=== PATIENT | male | born 1935 | race Caucasian/White ===

== ENCOUNTER 2017-07-24 17:42 | Observation (INO) | payer OTHER ==
--- NOTE | 2017-07-24 18:12 | EDPHY ---
H & P Time Seen by Provider: 07/24/17 17:55 HPI/ROS: HPI Abdominal discomfort, swelling of ankles, mild shortness of breath. 81-year-old male by private vehicle with his son. This patient has been living in [place] for the last couple of months. He came up through [place] with family and arrived here in [place] 4 days ago. He reports that over the last 2 days he has had a sensation of fullness and distention in his abdomen. He reports this is feeling gassy. He also reports that he has been feeling short of breath, particularly more so when he was up in [place] yesterday. He also states that he has had some swelling in both his ankles and his feet. He reports he had a reaction similar to this [place] to the [facility] area a couple of years ago. He states that his abdomen is now feeling better. He denies any shortness of breath at this time at rest. ROS: Constitutional: No fever, no chills. No weakness. Eyes: No discharge. No changes in vision. ENT: No sore throat. No nasal congestion or rhinorrhea. Respiratory: No cough. As above. Cardiac: As above, no palpitations. Gastrointestinal: As above, no nausea, no vomiting, no diarrhea. Genitourinary: No hematuria. No dysuria or increased frequency with urination. Musculoskeletal: No back pain. No neck pain. No myalgias or arthralgias. As above. Skin: No rashes. Neurological: No headache. No focal weakness or altered sensation. Past medical history: Atrial fibrillation. He is currently not on anticoagulation. 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 This is Dr. Jonah Park. Social history: Nonsmoker. Drinks alcohol socially. Here with family. Physical Exam: General Appearance: Alert, no distress. This patient is responding to questions appropriately and in full sentences. This patient appears well- hydrated and well-nourished. Eyes: Pupils equal and round no pallor or injection. No lid edema, erythema or injection. Respiratory: There are no retractions, lungs are clear to auscultation with good air movement bilaterally. Cardiovascular: Irregular, irregular rhythm. No murmur. Gastrointestinal: Abdomen is soft, mildly distended but nontender, no masses, bowel sounds normal. No focal tenderness at McBurney's point. No Long sign. Neurological: Motor sensory function is grossly intact. Cranial nerves are normal. Gait is normal. Skin: Warm and dry, no rashes. Musculoskeletal: Neck is supple and nontender. Extremities are symmetrical. Trace lower extremity pitting edema. No calf tenderness on palpation. No palpable cords. All joints range without pain or impingement. Psychiatric: No agitation. No depression. Database: EKG: EKG time is 6:26 p.m.; EKG shows a narrow complex atrial fibrillation with a ventricular rate of 94. The QRS, QT intervals are within normal limits. Borderline T-wave abnormalities in the inferior leads. There are no ST-T wave changes indicative of ischemic or injury pattern. No evidence of right heart strain. Interpreted by me. This EKG was compared to a prior EKG from July of 2013 and does not show any significant changes. Imaging: Chest x-ray AP portable; cardiomegaly, the cardiac mediastinal silhouette is otherwise unremarkable. No evidence of infiltrate or pneumothorax. Acute congestive heart failure with cardiomegaly. Interstitial edema present. Interpreted by me. Upright abdominal series x-ray; no obstructive pattern. No free air. Interpreted by me. CT angiogram of chest; CHF. No pulmonary embolism. Results were discussed with staff radiologist Dr. Orlando Romo. Procedures: Emergency department course: IV placed. Triage vital signs reviewed. He is hypertensive. Vital signs otherwise normal. He is feeling better at the time of his emergency department evaluation. Chest x-ray significant for acute pulmonary edema and congestive heart failure. D-dimer is significantly elevated. Patient will be sent for CT angiogram of his chest to evaluate for pulmonary embolism after verification of normal creatinine. I discussed admission with the patient as well as need for CT angiogram. He consents. 8:00 p.m., hospitalist paged for admission. 8:15 p.m., spoke with on-call hospitalist Dr. Mary Hayward. Case discussed in detail with her. She accepts this patient for admission. The patient's remaining emergency department course under my care has been uneventful. The patient was admitted in stable condition to the hospitalist service. Differential Diagnosis: The differential diagnosis on this patient includes but is not limited to congestive heart failure acute mountain sickness, constipation, atrial fibrillation. Pulmonary embolism, liver failure, renal failure, anemia, acute coronary syndrome unlikely. This represents a partial list of diagnoses considered. These considerations are based on history, physical exam, past history, reassessment and diagnostic testing. Smoking Status: Never smoked Constitutional: Initial Vital Signs Temperature (C) 36.6 C 07/24/17 17:47 Heart Rate 96 07/24/17 17:47 Respiratory Rate 20 07/24/17 17:47 Blood Pressure 165/119 H 07/24/17 17:47 O2 Sat (%) 94 07/24/17 17:47 O2 Delivery Mode Room Air Allergies/Adverse Reactions: No Known Allergies Allergy (Verified 07/24/17 17:46) Home Medications: Medication Instructions Recorded Temazepam [Restoril 15 MG (*)] 15 mg PO HSPRN PRN 08/10/13 Testosterone Cream 1 ro TP DAILY 08/10/13 Medical Decision Making - Diagnostics Imaging Results: Imaging Impressions Chest X-Ray 07/24/17 18:05 Impression: Acute congestive failure with cardiomegaly and interstitial pulmonary edema. Abdomen X-Ray 07/24/17 18:07 Impression: 1. Negative upright abdominal radiograph. Chest/Thorax CTA 07/24/17 18:46 Impression: 1. No evidence of pulmonary embolic disease. 2. Suspect congestive heart failure. 3. See above report for additional findings. Results called and discussed with Aaron Monge MD on 07/24/2017 at 19: 55. - Data Points Laboratory Results: Laboratory Results 07/24/17 18:10 07/24/17 18:10 07/24/17 07/24/17 07/24/17 18:17 18:10 18:10 WBC RBC Hgb Hct MCV MCH MCHC RDW Plt Count MPV Neut % (Auto) Lymph % (Auto) [place] % (Auto) Eos % (Auto) Baso % (Auto) Nucleat RBC Rel Count Absolute Neuts (auto) Absolute Lymphs (auto) Absolute Monos (auto) Absolute Eos (auto) Absolute Basos (auto) Absolute Nucleated RBC Immature Gran % Immature Gran # PT 13.6 SEC SEC (12.0-15.0) INR 1.02 (0.83-1.16) APTT 26.2 SEC SEC (23.0-38.0) D-Dimer 3.32 ug/mLFEU H ug/mLFEU (0.00-0.50) Sodium 138 mEq/L mEq/L (135-145) Potassium 4.1 mEq/L mEq/L (3.3-5.0) Chloride 101 mEq/L mEq/L (97-110) Carbon Dioxide 23 mEq/l mEq/l (22-31) Anion Gap 14 mEq/L mEq/L (8-16) BUN 19 mg/dL mg/dL (7-23) Creatinine 0.8 mg/dL mg/dL (0.7-1.3) Estimated GFR > 60 Glucose 80 mg/dL mg/dL (70-100) Calcium 9.2 mg/dL mg/dL (8.5-10.4) Total Bilirubin 1.5 mg/dL H mg/dL (0.1-1.4) Conjugated Bilirubin 0.5 mg/dL mg/dL (0.0-0.5) Unconjugated Bilirubin 1.0 mg/dL mg/dL (0.0-1.1) AST 120 IU/L H IU/L (17-59) ALT 155 IU/L H IU/L (21-72) Alkaline Phosphatase 112 IU/L IU/L (38-126) POC Troponin I 0.03 ng/mL ng/mL (0.00-0.08) NT-Pro-B Natriuret Pep 6090 pg/mL H pg/mL (0-450) Total Protein 7.5 g/dL g/dL (6.3-8.2) Albumin 4.2 g/dL g/dL (3.5-5.0) Lipase 32 IU/L IU/L (23-300) Urine Color Urine Appearance Urine pH Ur Specific [place] Urine Protein Urine Ketones Urine Blood Urine Nitrate Urine Bilirubin Urine Urobilinogen Ur Leukocyte Esterase Urine RBC Urine WBC Ur Epithelial Cells Urine Glucose 07/24/17 07/24/17 18:10 18:05 WBC 12.12 10^3/uL H 10^3/uL (3.80-9.50) RBC 4.07 10^6/uL L 10^6/uL (4.40-6.38) Hgb 14.1 g/dL g/dL (13.7-17.5) Hct 41.1 % % (40.0-51.0) MCV 101.0 fL H fL (81.5-99.8) MCH 34.6 pg H pg (27.9-34.1) MCHC 34.3 g/dL g/dL (32.4-36.7) RDW 14.2 % % (11.5-15.2) Plt Count 257 10^3/uL 10^3/uL (150-400) MPV 9.7 fL fL (8.7-11.7) Neut % (Auto) 66.0 % % (39.3-74.2) Lymph % (Auto) 21.3 % % (15.0-45.0) [place] % (Auto) 9.0 % % (4.5-13.0) Eos % (Auto) 3.1 % % (0.6-7.6) Baso % (Auto) 0.4 % % (0.3-1.7) Nucleat RBC Rel Count 0.0 % % (0.0-0.2) Absolute Neuts (auto) 7.99 10^3/uL H 10^3/uL (1.70-6.50) Absolute Lymphs (auto) 2.58 10^3/uL 10^3/uL (1.00-3.00) Absolute Monos (auto) 1.09 10^3/uL H 10^3/uL (0.30-0.80) Absolute Eos (auto) 0.38 10^3/uL 10^3/uL (0.03-0.40) Absolute Basos (auto) 0.05 10^3/uL 10^3/uL (0.02-0.10) Absolute Nucleated RBC 0.00 10^3/uL 10^3/uL (0-0.01) Immature Gran % 0.2 % % (0.0-1.1) Immature Gran # 0.03 10^3/uL 10^3/uL (0.00-0.10) PT INR APTT D-Dimer Sodium Potassium Chloride Carbon Dioxide Anion Gap BUN Creatinine Estimated GFR Glucose Calcium Total Bilirubin Conjugated Bilirubin Unconjugated Bilirubin AST ALT Alkaline Phosphatase POC Troponin I NT-Pro-B Natriuret Pep Total Protein Albumin Lipase Urine Color PALE YELLOW Urine Appearance CLEAR Urine pH 7.0 (5.0-7.5) Ur Specific [place] 1.004 (1.002-1.030) Urine Protein NEGATIVE (NEGATIVE) Urine Ketones NEGATIVE (NEGATIVE) Urine Blood 1+ H (NEGATIVE) Urine Nitrate NEGATIVE (NEGATIVE) Urine Bilirubin NEGATIVE (NEGATIVE) Urine Urobilinogen NEGATIVE EU EU (0.2-1.0) Ur Leukocyte Esterase NEGATIVE (NEGATIVE) Urine RBC 1-3 /hpf /hpf (0-3) Urine WBC 1-3 /hpf /hpf (0-3) Ur Epithelial Cells TRACE /lpf /lpf (NONE-1+) Urine Glucose NEGATIVE (NEGATIVE) Medications Given: Hydralazine HCl (Apresoline) 10 mg IVP Q6 PRN PRN Reason: SBP>160 Stop: 01/20/18 21:52 Last Admin: 07/24/17 22:27 Dose: 10 mg Discontinued Medications Furosemide (Lasix Injection) 40 mg IVP ONCE ONE Stop: 07/24/17 21:50 Last Admin: 07/24/17 22:25 Dose: 40 mg Point of Care Test Results: Chemistry 07/24/17 18:17 POC Troponin I 0.03 ng/mL ng/mL (0.00-0.08) Departure - Departure Disposition: [facility] Inpatient Acute Clinical Impression: Atrial fibrillation, CHF (congestive heart failure)
[2017-07-24 18:27] LABS: PLATELET COUNT 257 10^3/uL (150-400)
--- NOTE | 2017-07-24 18:28 | CPEKG ---
Heart Rate: 94 RR Interval: 638 QRSD Interval: 104 QT Interval: 396 QTC Interval: 496 QRS [place]: 62 T Wave [place]: 3 EKG Severity - ABNORMAL ECG - EKG Impression: ATRIAL FIBRILLATION, V-RATE 82-106 EKG Impression: BORDERLINE T ABNORMALITIES, INFERIOR LEADS EKG Impression: BORDERLINE PROLONGED QT INTERVAL Electronically Signed By: Aaron Monge 24-Jul-2017 22:21:45
[2017-07-24 18:35] LABS: INR 1.02 (0.83-1.16); PROTIME(PATIENT) 13.6 SEC (12.0-15.0)
[2017-07-24] MEDS ORDERED: IOPAMIDOL (ISOVUE 370) 100 ML BTL IV ONE (18:52)
[2017-07-24] MEDS ORDERED: FUROSEMIDE 40 MG/4 ML VIAL IVP ONE (21:49)
[2017-07-24] MEDS ORDERED: TEMAZEPAM 15 MG CAP PO PRN (21:49)
[2017-07-24] MEDS ORDERED: ACETAMINOPHEN 325 MG TAB PO PRN (21:52)
[2017-07-24] MEDS ORDERED: ONDANSETRON 4 MG/2 ML VIAL IVP PRN (21:52)
[2017-07-24] MEDS ORDERED: PROMETHAZINE HCL 25 MG/ML INJ IVP PRN (21:52)
[2017-07-24] MEDS ORDERED: hydrALAZINE 20 MG/ML VIAL IVP PRN (21:53)
--- NOTE | 2017-07-24 22:43 | GHP ---
[f rep st] HISTORY AND PHYSICAL DATE OF ADMISSION: 07/24/2017 CHIEF COMPLAINT: Shortness of breath. HISTORY: The patient is a 81-year-old male who has a home in [place] in addition to a home in [place] . He had been in [place] for the last few months. He just returned last Saturday. He now complains of 3 days of shortness of breath and increasing leg edema. He has PND and orthopnea. He denies any chest pain. He ate a lot of salt while he was in [place]. He also complains of abdominal distention, saying that yesterday his abdomen was distended and hard as a rock. It is a little better today. Andrea smallwood had some epigastric pain yesterday that has now resolved. PAST MEDICAL HISTORY: Atrial fibrillation, refuses anticoagulation. MEDICATIONS: Please see computer record for full detailed list. ALLERGIES: No known drug allergies. SOCIAL HISTORY: No smoking. He drinks 2 drinks every day, although he admits that they are heavy dr inks, so more like 4. He lives alone, but his son lives right next door. REVIEW OF SYSTEMS: Complete review of systems obtained. Review of systems negative regarding consti tutional, HEENT, GI, pulmonary, cardiovascular, , hematology, musculoskeletal, endocrine, and psych except for positives and negatives as noted in HPI. FAMILY HISTORY: Reviewed and noncontributory to presenting complaint. PHYSICAL EXAM: GENERAL: Well-nourished male, in no acute distress. VITAL SIGNS: Temperature is 36 .6, pulse 97, blood pressure 165/102, saturating 93% on room air. EYES: Normal conjunctiva. Pupils reactive to light. ENT: Normal ears, nose. Hearing intact. Normal teeth. Oropharynx moist. NEC K: Trachea midline. No thyromegaly. CHEST: Normal respiratory effort. LUNGS: Bibasilar rales. CARDIOVASCULAR: Regular rhythm. No murmur. Trace lower extremity edema. ABDOMEN: Soft, nontender . No hepatosplenomegaly. Distended. SKIN: Warm, dry, intact without rash. MUSCULOSKELETAL: No c yanosis or clubbing. Strength 5/5 upper and lower extremities. NEUROLOGIC: Cranial nerves intact. Normal sensation to light touch. PSYCH: Alert and oriented x3. Normal mood and affect. Normal ju dgment. Normal memory. LABORATORY DATA: White count 12.1, hematocrit 41, platelets 257. Sodium 138, potassium 4.1, chlorid e 101, bicarb 23, BUN 14, creatinine 0.8, glucose 80. Troponins negative. AST is 120. ALT is 155. BNP is 6090. EKG viewed by me. My personal interpretation is atrial fibrillation. No ischemic ST or T-wave changes. CT angiogram of chest is negative for PE but does have congestive heart failure. ASSESSMENT/PLAN: 1. New onset congestive heart failure. We will check an echocardiogram. We will start him on intra venous Lasix. 2. Hypertension. He denies a history of hypertension, but on review of his chart, it has been liste d as a problem for him in the past. He does appear to have poor compliance. We will prescribe intra venous hydralazine overnight. He may need an oral agent. His poorly controlled hypertension is like ly contributing to his congestive heart failure. 3. Increased liver function tests. He also complains of epigastric pain and abdominal distention. He is drinking alcohol heavily. We will start with an abdominal ultrasound. He may need further wor kup. 4. Atrial fibrillation. Rate is okay despite lack of agents for rate control. He has refused antic oagulation in the past. CODE STATUS: Full. ADMISSION STATUS: We will admit him to observation. Re-evaluate tomorrow regarding ongoing need for hospitalization. DVT PROPHYLAXIS: He is moderate risk. We will place him on subcu Lovenox. /[id number]/MODL
[2017-07-24] MEDS ORDERED: METOPROLOL TARTRATE 25 MG TAB PO ONE (23:32)
[2017-07-25 04:24] LABS: PLATELET COUNT 266 10^3/uL (150-400)
[2017-07-25 04:31] LABS: INR 1.07 (0.83-1.16); PROTIME(PATIENT) 14.1 SEC (12.0-15.0)
[2017-07-25 05:11] LABS: HEPATITIS B SURFACE ANTIGEN NEGATIVE (NEGATIVE)
[2017-07-25 05:16] LABS: HEPATITIS A ANTIBODY IGM (BCH) NEGATIVE (NEGATIVE); HEPATITIS B CORE AB IGM NEGATIVE (NEGATIVE)
[2017-07-25 05:28] LABS: HEPATITIS C ANTIBODY TOTAL NEGATIVE (NEGATIVE)
[2017-07-25] MEDS ORDERED: ENOXAPARIN 40 MG/0.4 ML SYR SC SCH (09:00)
[2017-07-25] MEDS ORDERED: FUROSEMIDE 40 MG/4 ML VIAL IVP SCH (09:00)
[2017-07-25] MEDS ORDERED: TESTOSTERONE TP SCH (09:00)
[2017-07-25 11:22] VITALS: BP 147/103
--- NOTE | 2017-07-25 12:25 | ECHO ---
[email or web address] [address] Main: [phone] Fax: Transthoracic Echocardiogram Name: YUE GLOVER MR#: [id number] Study Date: 07/25/2017 Study Time: 08:50 AM Date of : 1935 Age: 81 year(s) Height: 175.3 cm (69 in.) Weight: 71.21 kg (157 lb.) BSA: 1.86 m2 Gender: Male Examination: Echo Indication: CHF Image Quality: Adequate Contrast: Requested by: Mary Hayward BP: 141 mmHg/88 mmHg Heart Rate: Rhythm: Atrial fibrillation Indication: CHF Procedure Staff Tennis Professional: Beronica Fonseca RDCS Reading Physician: Ron Yanez MD Requesting Provider: Conclusions: Low normal left ventricular systolic function. EF is 51 %. The left atrium is severely dilated. Mild to moderate mitral regurgitation. Moderate aortic valve regurgitation is present. Moderate tricuspid regurgitation is present. Right ventricular systolic pressure measures 41mmHg. Measurements: Chambers Valvular Assessment AV/MV Valvular Assessment TV/PV Normal Normal Normal Name Value Range Name Value Range Name Value Range Ao Beverley (MM): 3.3 cm (2.2 cm-3.7 AV Vmax: 1.26 m/s (1 m/s-1.7 TR Vmax: 2.80 mm/s ( - ) cm) m/s) TR PGmax: 31 mmHg ( - ) IVSd (2D): 1.0 cm (0.6 cm-1.1 AV maxP mmHg ( - ) syst. PAP: 41 mmHg ( - ) cm) LVOT Vmax: 0.78 m/s (0.7 m/s-1.1 PV Vmax: 0.66 m/s (0.6 m/s-0.9 LVDd (2D): 4.4 cm (4.2 cm-5.9 m/s) m/s) cm) AR (PHT): 633 ms ( - ) PV PGmax: 2 mmHg ( - ) LVDs (2D): 3.6 cm (2.1 cm-4 MV E Vmax: 0.85 m/s ( - ) cm) LVPWd (2D): 1.1 cm (0.6 cm-1 cm) LVEF (BP): 51 % (>=55 %) RVDd(2D): 3.5 cm (1.9 cm-3.8 cmmm) Continued Measurements: Chambers Valvular Assessment AV/MV Valvular Assessment TV/PV Name Value Name Value Name Value Patient: YUE GLOVER Study Date: 07/25/2017 Page 1 of 2 08:50 AM LADs Lon.2 cm MV DecTime: 169 m/s CVP (est.): 10 mmHg LA Area: 29.2 cm2 MV E' Septal: 0.09 m/s LA Volume: 100 ml MV E/E' Septal: 9.80 LA Volume Index: 53.8 ml/m2 MV E/E' Lateral: 8.50 TAPSE: 1.5 cm AR Vmax: 4.24 cm/s Additional Vessels Name Value Ao Ascendin.6 cm Findings: Left Ventricle: Normal size left ventricle. Borderline concentric LV hypertrophy. Low normal left ventricular systolic function. EF is 51 %. No regional wall motion abnormality. Unable to assess diastolic dysfunction. Right Ventricle: Normal size right ventricle. Normal RV function. Left Atrium: The left atrium is severely dilated. Right Atrium: The right atrium is severely dilated. Mitral Valve: There is mild thickening of the mitral valve leaflets. Mild to moderate mitral regurgitation. Aortic Valve: The aortic valve is tri-leaflet. Mild aortic cusp calcification is noted. Moderate aortic valve regurgitation is present. No aortic valve stenosis is present. Tricuspid Valve: The tricuspid valve appears normal. Moderate tricuspid regurgitation is present. Right ventricular systolic pressure measures 41mmHg. The pulmonary artery pressure is mildly increased. Pulmonic Valve: The pulmonic valve is normal in appearance and function. Trivial pulmonic valve regurgitation. Aorta: Normal size aortic root measuring 3.3 cm. Normal size ascending aorta measuring 3.6 cm. IVC: The IVC is dilated. Pericardium: No pericardial effusion. (No Signature Object) Patient: YUE GLOVER Study Date: 07/25/2017 Page 2 of 2 08:50 AM [id number]
--- NOTE | 2017-07-25 13:19 | HOSPPROG ---
Hospitalist Progress Note Assessment/Plan: 81 yo M w new systolic heart failure declines all therapies 30' spent at bedisde discussing will dc today encouraged outpt pcp follow upsee dc summary Subjective: case d/w dr qureshi Objective: Vital Signs Temp Pulse Resp BP Pulse Ox 36.6 C 91 16 147/103 H 94 07/25/17 11:21 07/25/17 11:21 07/25/17 11:21 07/25/17 11:21 07/25/17 11:21 Laboratory Results 07/25/17 03:31 07/25/17 03:31 07/24/17 07/25/17 07/26/17 05:59 05:59 05:59 Intake Total 250 Output Total 2805 150 Balance -2555 -150 PT 14.1 SEC (12.0-15.0) 07/25/17 03:31 INR 1.07 (0.83-1.16) 07/25/17 03:31 - Physical Exam Constitutional: no apparent distress, appears nourished Eyes: PERRL, anicteric sclera Ears, Nose, Mouth, Throat: moist mucous membranes, hearing normal Cardiovascular: regular rate and rhythym, no murmur, rub, or gallop, systolic murmur Respiratory: no respiratory distress, No no rales or rhonchi Gastrointestinal: normoactive bowel sounds, soft, non-tender abdomen Genitourinary: no bladder fullness, sarah in urethra Skin: warm, normal color Musculoskeletal: full muscle strength Neurologic: AAOx3 ICD10 Worksheet Patient Problems: Problems Problem Status Onset A-fib Acute CHF (congestive heart failure) Acute
--- NOTE | 2017-07-25 13:41 | GDS ---
[f rep st] DISCHARGE SUMMARY DISCHARGE DIAGNOSES: 1. New symptomatic systolic heart failure. 2. Longstanding atrial fibrillation. 3. Abdominal bloating. 4. Mitral regurgitation. HISTORY OF PRESENT ILLNESS: Please see admission history and physical by Dr. Mary Hyaward. The pa brett presented with lower extremity edema, orthopnea and PND following returning from [place] where garcia smallwood spent a number of months. Evaluation revealed mild pulmonary edema. He had elevated D-dimer with resulting negative study for pulmonary embolism. He had moderate transaminitis that is trending down . This is attributed to moderately heavy alcohol use. Notably, the pattern of AST and ALT was not n ecessarily consistent with alcohol use. The patient had a echocardiogram showing an EF of 50% without focal wall motion abnormalities as well as as a severely dilated left atrium with mild to moderate mitral regurgitation. He had an RVSP of 41 mmHg. I discussed the risks and benefits of treatment including an ESTRELLITA inhibitor, diuretic, stres s test and further evaluation. He declined all of this, stating he would like to follow up with his primary care physician. He is on room air. I did call and speak with Dr. Francesco Yang, his [facility] physician and encouraged followup. The patient is discharged on no medications. /[id number]/MODL
== END 2017-07-25 13:55 | disposition home or self-care (01) ==
LOC: INTOOBSV 20:23 → F2W 21:09
PROVIDERS: ADMIT Internal Medicine; ATTEND Internal Medicine
DX: I50.20 Unspecified systolic (congestive) heart failure (principal); I48.91 Unspecified atrial fibrillation; R14.0 Abdominal distension (gaseous); I34.0 Nonrheumatic mitral (valve) insufficiency; R74.0 Nonspecific elevation of levels of transaminase and lactic acid dehydrogenase [LDH]; I11.0 Hypertensive heart disease with heart failure
CPT/HCPCS: 71045; 71275; 74018; 76705; 93005; 93306; 99285; G0378; J0360; J1940; Q9967; 84484-PO; G0472

== ENCOUNTER → 2017-08-14 | Outpatient (CLI) | payer OTHER | LOC: BHFA 09:15 | PROVIDERS: ATTEND Nurse Practitioner Adult Health | DX: I48.91 Unspecified atrial fibrillation (principal) ==

== ENCOUNTER 2017-10-09 10:53 | Inpatient (IN) | payer OTHER ==
[2017-10-09] MEDS ORDERED: ONDANSETRON 4 MG/2 ML VIAL ONE ×2 (11:17→17:51)
[2017-10-09] MEDS ORDERED: NS 1,000 ML IV ONE ×3 (11:26→21:58)
[2017-10-09] MEDS ORDERED: HYDROmorphONE/DILAUDID 2 MG/ML INJ IVP ONE (11:26)
[2017-10-09] MEDS ORDERED: HYDROmorphONE/DILAUDID 1 MG/ML INJ ONE (11:26)
[2017-10-09] MEDS ORDERED: ONDANSETRON 4 MG/2 ML VIAL IVP ONE (11:26)
--- NOTE | 2017-10-09 11:26 | EDPHY ---
H & P Stated Complaint: GENERALIZED ABD PAIN AND N/V SINCE THIS MORNING Time Seen by Provider: 10/09/17 11:25 - Personal History Current Tetanus Diphtheria and Acellular Pertussis (TDAP): Yes - Medical/Surgical History Hx Asthma: No Hx Chronic Respiratory Disease: No Hx Diabetes: No Hx Cardiac Disease: Yes Hx Renal Disease: No Hx Cirrhosis: No Hx Alcoholism: No Hx HIV/AIDS: No Hx Splenectomy or Spleen Trauma: No Other PMH: ?afib, sts "irregular HB that Rich told me to just drink more fluids for since I didn't want blood thinners" HTN, NEUROPATHY, DIVERTICULOSIS, HAND SURGERY, TONSILECTOMY, MICROCYTOSIS - Social History Smoking Status: Never smoked Constitutional: Initial Vital Signs Temperature (C) 36.5 C 10/09/17 11:05 Heart Rate 104 H 10/09/17 11:05 Respiratory Rate 22 H 10/09/17 11:05 Blood Pressure 190/106 H 10/09/17 11:05 O2 Sat (%) 94 10/09/17 11:05 O2 Delivery Mode Oxymask O2 (L/minute) 2 Allergies/Adverse Reactions: No Known Allergies Allergy (Verified 10/09/17 11:01) Home Medications: Medication Instructions Recorded Multivitamins [Multivitamin (*)] 1 each PO DAILY 10/09/17 Temazepam [Restoril 15 MG (*)] 15 mg PO HSPRN PRN 10/09/17 Medical Decision Making - Diagnostics Imaging Results: Imaging Impressions Abdomen CT 10/09/17 11:26 Impression: 1. Bowel perforation, likely ileum, may be due to Meckel's diverticulum, isolated small bowel diverticulum, or ileitis. 2. No abscess or large volume pneumoperitoneum. Findings discussed with Emergency Department physician, Jhon Hebert MD, on , 13:35. Imaging: Discussed imaging studies w/ train caller Radiologist, I viewed and interpreted images myself ED Course/Re-evaluation: CHIEF COMPLAINT: Abdominal pain HISTORY OF PRESENT ILLNESS: The patient is a 81 y/o male with a history of atrial fibrillation, cardiac stents, and diverticulosis complaining of sudden onset abdominal pain, nausea, and vomiting onset this morning. Around 1 hour after eating pizza and coffee this morning he developed the worsening abdominal pain. He did have a normal bowel movement this morning. Denies chest pain, shortness of breath, urinary complaints, numbness, paresthesias, fever. REVIEW OF SYSTEMS: A 10 point review of systems was performed and is negative with the exception of the elements mentioned in the history of present illness. PHYSICAL EXAM: HR, BP, O2 Sat, RR. Temp noted General Appearance: Alert, well hydrated, appropriate, and non-toxic appearing. Head: Atraumatic without scalp tenderness or obvious injury Eyes: Pupils equal, round, reactive to light and accommodation, EOMI, no trauma , no injection. Ears: Clear bilaterally, no perforation, normal landmarks Nose: Atraumatic, no rhinorrhea, clear. Throat: There is no erythema or exudates, no lesions, normal tonsils, mucus membranes moist. Neck: Supple, 2+ carotid upstroke, nontender, no lymphadenopathy. Respiratory: No retractions, no distress, no wheezes, and no accessory muscle use. Lungs are clear to auscultation bilaterally. Cardiovascular: Regular rate and rhythm, no murmurs, rubs, or gallops. Bilateral carotid, radial, dorsalis pedis, and posterior tibial pulses intact. Good capillary refill all extremities. Gastrointestinal: Rigid and diffusely tender abdomen consistent with positive peritoneal signs. Abdomen is non-distended, no masses, no rebound, no guarding. Musculoskeletal: Normal active ROM of all extremities, atraumatic. Neurological: Alert, appropriate, and interactive. The patient has normal DTRs and non-focal cranial nerves, motor, sensory, and cerebellar exam. Skin: No rashes, good turgor, no nodules on palpation. Past medical history: Atrial fibrillation, hypertension, neuropathy, diverticulosis, microcytosis, Past surgical history: Cardiac stents, tonsillectomy, hand surgery Family history: Denies Social history: Lives in [place], family at bedside, retired DIAGNOSTICS/PROCEDURES/CRITICAL CARE TIME: Abdominopelvic CT: Perforated bowel; terminal ileum is inflamed and he has extraluminal gas. EKG: The 12 lead EKG was interpreted by myself as atrial fibrillation with RVR and a rate of 151, left ventricular hypertrophy, borderline prolonged QT interval. See hard copy and/or "tracemaster" electronic copy for interpretation. Critical care time spent by me, Dr. Hebert, exclusively with this patient was 30 minutes, exclusive of PA time and exclusive of procedures. The organ system at risk was gastrointestinal and I gave IVF, Ertapenem, diltiazem, and transferred the patient to a general surgeon to prevent worsening of the patients condition. DIFFERENTIAL DIAGNOSIS: The differential diagnosis for the patient's abdominal pain included but was not limited to perforated bowel, appendicitis, cholecystitis, hernias, testicular torsion, gastritis, and urinary tract infection. MEDICAL DECISION MAKING: The patient is a 81 y/o male with a history of atrial fibrillation, cardiac stents, and diverticulosis presenting with sudden onset abdominal pain, nausea, and vomiting onset this morning. On exam he has a rigid, diffusely tender abdomen with positive peritoneal signs. Labs and abdominopelvic CT ordered; 1L IV NS, 0.5mg IV Dilaudid, and 4mg IV Zofran administered. 1140: Patient's pain has not improved with Dilaudid; 1mg IV Ativan administered. 1157: Patient's EKG interpreted as atrial fibrillation with RVR. 20mg IV Diltiazem bolus and IV Diltiazem drip administered. This patient is aware of the atrial fibrillation and does not want to be anticoagulated. 1225: Reassessed patient as his O2Sats dropped into the 60's while CT was trying to lie him flat. His O2Sats are now in the 80's and he is on 10L supplemental oxygen; he does have normal wave form. 1322: Patient has returned from CT. His labs are unremarkable. 1333: Spoke with Dr. Duran, radiologist, regarding patients abdominopelvic CT. The patient has perforated bowel, the terminal ileum is inflamed and he has extraluminal gas. His labs are unremarkable; 1gm Ertapenem administered. 1335: Consulted with Dr. Kendall, general surgeon, regarding this patient. Dr. Kendall agrees to admit and operate on this patient. The patient's rate remains controlled with Diltiazem. 1338: Consulted with hospitalist service, Dr. Quintero will follow this patient during his admission. 1345: Consulted with [facility] regarding this patient. They will consult on this patient during his admission. Echocardiogram ordered. 1400: Reassessed patient and discussed plan for surgery and admission. The patient and his family are comfortable with this plan. Upon reexamination he is becoming more hypoxemic and is not mentating well. 1405: I consulted with Dr. Quintero, who will admit this patient instead of Dr. Kendall. 1444: Consulted with Dr. Finn, diesel powerplant supervisor, regarding this patient. - Data Points Laboratory Results: Laboratory Results 10/09/17 11:30 10/09/17 11:30 10/09/17 10/09/17 10/09/17 11:39 11:30 11:30 WBC RBC Hgb POC Hgb 19.0 gm/dL H gm/dL (13.7-17.5) Hct POC Hct 56 % H % (40-51) MCV MCH MCHC RDW Plt Count MPV Neut % (Auto) Lymph % (Auto) [place] % (Auto) Eos % (Auto) Baso % (Auto) Nucleat RBC Rel Count Absolute Neuts (auto) Absolute Lymphs (auto) Absolute Monos (auto) Absolute Eos (auto) Absolute Basos (auto) Absolute Nucleated RBC Immature Gran % Immature Gran # PT 13.8 SEC SEC (12.0-15.0) INR 1.04 (0.83-1.16) APTT 23.2 SEC SEC (23.0-38.0) POC Sodium 140 mEq/L mEq/L (135-145) Sodium 140 mEq/L mEq/L (135-145) POC Potassium 4.0 mEq/L mEq/L (3.3-5.0) Potassium 4.6 mEq/L mEq/L (3.3-5.0) POC Chloride 104 mEq/L mEq/L (97-110) Chloride 101 mEq/L mEq/L (97-110) Carbon Dioxide 26 mEq/l mEq/l (22-31) Anion Gap 13 mEq/L mEq/L (8-16) POC BUN 31 mg/dL H mg/dL (7-23) BUN 31 mg/dL H mg/dL (7-23) Creatinine 0.9 mg/dL mg/dL (0.7-1.3) POC Creatinine 1.0 mg/dL mg/dL (0.7-1.3) Estimated GFR > 60 Glucose 174 mg/dL H mg/dL (70-100) POC Glucose 170 mg/dL H mg/dL (70-100) Calcium 10.0 mg/dL mg/dL (8.5-10.4) Total Bilirubin 0.9 mg/dL mg/dL (0.1-1.4) Conjugated Bilirubin 0.1 mg/dL mg/dL (0.0-0.5) Unconjugated Bilirubin 0.8 mg/dL mg/dL (0.0-1.1) AST 36 IU/L IU/L (17-59) ALT 31 IU/L IU/L (21-72) Alkaline Phosphatase 87 IU/L IU/L (38-126) Total Protein 8.3 g/dL H g/dL (6.3-8.2) Albumin 4.7 g/dL g/dL (3.5-5.0) Lipase 47 IU/L IU/L (23-300) 10/09/17 11:30 WBC 7.98 10^3/uL 10^3/uL (3.80-9.50) RBC 4.96 10^6/uL 10^6/uL (4.40-6.38) Hgb 17.5 g/dL g/dL (13.7-17.5) POC Hgb Hct 51.4 % H % (40.0-51.0) POC Hct MCV 103.6 fL H fL (81.5-99.8) MCH 35.3 pg H pg (27.9-34.1) MCHC 34.0 g/dL g/dL (32.4-36.7) RDW 13.6 % % (11.5-15.2) Plt Count 283 10^3/uL 10^3/uL (150-400) MPV 10.0 fL fL (8.7-11.7) Neut % (Auto) 54.3 % % (39.3-74.2) Lymph % (Auto) 34.1 % % (15.0-45.0) [place] % (Auto) 4.6 % % (4.5-13.0) Eos % (Auto) 6.0 % % (0.6-7.6) Baso % (Auto) 0.5 % % (0.3-1.7) Nucleat RBC Rel Count 0.0 % % (0.0-0.2) Absolute Neuts (auto) 4.33 10^3/uL 10^3/uL (1.70-6.50) Absolute Lymphs (auto) 2.72 10^3/uL 10^3/uL (1.00-3.00) Absolute Monos (auto) 0.37 10^3/uL 10^3/uL (0.30-0.80) Absolute Eos (auto) 0.48 10^3/uL H 10^3/uL (0.03-0.40) Absolute Basos (auto) 0.04 10^3/uL 10^3/uL (0.02-0.10) Absolute Nucleated RBC 0.00 10^3/uL 10^3/uL (0-0.01) Immature Gran % 0.5 % % (0.0-1.1) Immature Gran # 0.04 10^3/uL 10^3/uL (0.00-0.10) PT INR APTT POC Sodium Sodium POC Potassium Potassium POC Chloride Chloride Carbon Dioxide Anion Gap POC BUN BUN Creatinine POC Creatinine Estimated GFR Glucose POC Glucose Calcium Total Bilirubin Conjugated Bilirubin Unconjugated Bilirubin AST ALT Alkaline Phosphatase Total Protein Albumin Lipase Medications Given: Discontinued Medications Diltiazem HCl (Cardizem 25 Mg/5 Ml Vial) 20 mg IVP EDNOW ONE Stop: 10/09/17 12:03 Last Admin: 10/09/17 12:32 Dose: 20 mg Hydromorphone HCl (Dilaudid) 1 mg IVP EDNOW ONE Stop: 10/09/17 11:27 Last Admin: 10/09/17 11:31 Dose: 1 mg Sodium Chloride (Ns) 1,000 mls @ 0 mls/hr IV EDNOW ONE; Wide Open PRN Reason: Protocol Stop: 10/09/17 11:27 Last Admin: 10/09/17 11:31 Dose: 1,000 mls Diltiazem HCl 125 mg/ Dextrose 125 mls @ 0 mls/hr IV EDNOW ONE; As Directed PRN Reason: Protocol Stop: 10/09/17 12:03 Last Admin: 10/09/17 12:33 Dose: 125 mls Ertapenem 1 gm/ Sodium (Chloride) 100 mls @ 200 mls/hr IV EDNOW ONE PRN Reason: Protocol Stop: 10/09/17 14:03 Last Admin: 10/09/17 14:25 Dose: 100 mls Lorazepam (Ativan Injection) 1 mg IVP EDNOW ONE Stop: 10/09/17 11:42 Last Admin: 10/09/17 11:43 Dose: 1 mg Ondansetron HCl (Zofran) 4 mg IVP EDNOW ONE Stop: 10/09/17 11:27 Last Admin: 10/09/17 11:31 Dose: 4 mg Point of Care Test Results: Chemistry 10/09/17 11:39 POC Sodium 140 mEq/L mEq/L (135-145) POC Potassium 4.0 mEq/L mEq/L (3.3-5.0) POC Chloride 104 mEq/L mEq/L (97-110) POC BUN 31 mg/dL H mg/dL (7-23) POC Creatinine 1.0 mg/dL mg/dL (0.7-1.3) POC Glucose 170 mg/dL H mg/dL (70-100) ISTAT H&H 10/09/17 11:39 POC Hgb 19.0 gm/dL H gm/dL (13.7-17.5) POC Hct 56 % H % (40-51) Departure - Departure Disposition: To OP Cath/Surgery Clinical Impression: Perforated bowel, terminal ileum inflammation, Hypoxemia A-fib Qualifiers: Atrial fibrillation type: unspecified Qualified Code(s): I48.91 - Unspecified atrial fibrillation Condition: Critical Report Scribed for: Jhon Hebert Report Scribed by: Vanessa Shankar Date of Report: 10/09/17 Time of Report: 11:26
[2017-10-09] MEDS ORDERED: LORazepam 2 MG/ML INJ ONE (11:40)
[2017-10-09] MEDS ORDERED: LORazepam 2 MG/ML INJ IVP ONE (11:41)
[2017-10-09 11:44] LABS: PLATELET COUNT 283 10^3/uL (150-400)
[2017-10-09 11:54] LABS: INR 1.04 (0.83-1.16); PROTIME(PATIENT) 13.8 SEC (12.0-15.0)
[2017-10-09] MEDS ORDERED: DILTIAZEM 25 MG/5 ML VIAL IVP ONE (12:02)
[2017-10-09] MEDS ORDERED: DILTIAZEM 125 MG in D5W 125 ML IV ONE (12:02)
[2017-10-09] MEDS ORDERED: IOPAMIDOL (ISOVUE-300) 100 ML BTL ONE (12:08)
[2017-10-09] MEDS ORDERED: ERTAPENEM 1 GM in NS 100 ML IV ONE (13:34)
[2017-10-09] MEDS ORDERED: ACETAMINOPHEN 325 MG TAB PO PRN (14:09)
[2017-10-09] MEDS ORDERED: ONDANSETRON 4 MG/2 ML VIAL IVP PRN ×2 (14:09→18:39)
[2017-10-09] MEDS ORDERED: ONDANSETRON DISINTEGRATING 4 MG TAB PO PRN (14:09)
[2017-10-09] MEDS ORDERED: NS 1,000 ML IV SCH (14:15)
--- NOTE | 2017-10-09 15:03 | GHP ---
[f rep st] HISTORY AND PHYSICAL DATE OF ADMISSION: 10/09/2017 CHIEF COMPLAINT: Abdominal pain. HISTORY OF PRESENT ILLNESS: A 81-year-old man who presents with abdominal pain. Most history is obt ained through his daughter and son as he is not very responsive. He is curled up on his side in deborah r abdominal pain. Apparently this started suddenly this morning. He was found vomiting yellow fluid into his toilet. His significant other called an ambulance. He was taken emergently to the ED. He has had intermittent abdominal pain previously. This was the most severe. In the emergency departm ent, he was found to have a perforated ileum. Has become progressively more confused. He was also f ound to be in rapid atrial fibrillation. He was slowed down with a diltiazem drip. He did have a hi story of atrial fibrillation in the past and refused anticoagulation as well as scooter blockers. He h ad a history of mild systolic CHF with an EF of 50%. PAST MEDICAL/SURGICAL HISTORY: 1. Atrial fibrillation, refused medications. 2. Mild systolic CHF with an EF of 51%. MEDICATIONS: Please see medication reconciliation. ALLERGIES: No known drug allergies. SOCIAL HISTORY: He is accompanied by his son as well as his daughter. FAMILY HISTORY: Reviewed and noncontributory. REVIEW OF SYSTEMS: 10-point review of systems is conducted and is negative except per HPI. PHYSICAL EXAM: VITAL SIGNS: Blood pressure 190/106. Heart rate is up to initially 170, currently a round 80. Respiration rate when I am seeing him, is around 35-40, sating at 90% on high liter simple mask. GENERAL: The patient is an uncomfortable appearing man lying on his side in clear distress. HEENT: Shows him to be normocephalic, atraumatic. CARDIOVASCULAR: Regular rate and rhythm. He has a 2/6 systolic murmur. PULMONARY: Shows him to be breathing rapidly. His lungs are clear, however . ABDOMEN: Shows absent bowel sounds. Abdomen is firm and clearly tender to palpation as he grimace s when I press on it. SKIN: Showed no rash. : Showed no Zhao. NEUROLOGIC: Shows him to be al ert and oriented, though he seems to be somewhat detached. PSYCHIATRIC: Unobtainable. LABS: Basic metabolic panel shows a BUN of 31, glucose of 174. LFT showed a slightly elevated total protein of 8.3, but otherwise negative. INR is 1.04. White count of 7.9. MCV is 103.6. His hemog lobin is 17.5. Platelets are 283. DATA: 1. Discussed with Dr. Hebert. 2. I reviewed his abdominal CT. This shows evidence of an ileal perforation. 3. EKG, which I personally reviewed and interpreted, shows atrial fibrillation. He has a ventricula r rate of about 150. He has some, I believe, aberrancy intermittently. There are no acute ischemic changes. Is not significantly changed from his previous other than the tachycardia. IMPRESSION AND PLAN: 1. Perforated ileum: Dr. Kendall has been consulted and will see him momentarily. Expect, given his r igid abdomen and clinical appearance, that he will need emergent laparotomy. He has received Invanz; I will continue Zosyn for a high risk intraabdominal infection. 2. Perioperative evaluation: Will defer cardiovascular evaluation to Cardiology; however, he is mari te active, easily able to attain 4 METs at baseline. This would clearly be an emergent surgery as we ll. Echocardiogram is being performed now. His last ejection fraction was 51%. He does not appear to be in decompensated congestive heart failure, however. Would recommend that further therapeutics do not delay his definitive operative management. 3. Atrial fibrillation with rapid ventricular response: Indicative of his severe illness. He is cu rrently slowed on diltiazem. Would continue this for now. Appreciate cardiology management. He has declined anticoagulation in the past. Certainly is not appropriate at this point. 4. Sepsis as evidenced by tachypnea and tachycardia in the setting of an intraabdominal infection: He has received 1 L bolus. Is not currently hypotensive. Would continue to do intravenous fluids fo r now. 5. Respiratory failure: Likely due to his intraabdominal infection. He may need to be intubated pr eoperative or continue intubation postoperatively. Dr. Hebert is aware and available for intubation right now. BILLING: I spent a total of 45 minutes of floor critical care time managing intestinal perforation o f the patient. /[id number]/MODL
--- NOTE | 2017-10-09 15:40 | ECHO ---
[email or web address] [address] Main: [phone] Fax: Transthoracic Echocardiogram Name: YUE GLOVER MR#: [id number] Study Date: 10/09/2017 Study Time: 02:27 PM Date of : 1935 Age: 81 year(s) Height: 172.7 cm (68 in.) Weight: 72.58 kg (160 lb.) BSA: 1.86 m2 Gender: Male Examination: Echo Indication: Perforated Valve Image Quality: Contrast: Requested by: Jhon Hebert BP: / Heart Rate: Rhythm: Atrial fibrillation Indication: Perforated Valve Procedure Staff Catcher Filter Tip: Ritesh Rankin RDCS Reading Physician: Anil Finn MD Requesting Provider: Conclusions: Normal size left ventricle. Borderline concentric LV hypertrophy. The ejection fraction is visually estimated to be 50 %. The left atrium is severely dilated. The right atrium is severely dilated. Mild mitral valve leaflet calcification is present. Mild to moderate mitral regurgitation. The aortic valve is tri-leaflet. Mild aortic cusp calcification is noted. Mild to moderate aortic valve regurgitation. When compared to the 07/25/17 study. There is no significant change. Measurements: Chambers Valvular Assessment AV/MV Valvular Assessment TV/PV Normal Normal Normal Name Value Range Name Value Range Name Value Range Ao Beverley (MM): 3.6 cm (2.2 cm-3.7 AV Vmax: 1.41 m/s (1 m/s-1.7 TR Vmax: 2.93 mm/s ( - ) cm) m/s) TR PGmax: 34 mmHg ( - ) IVSd (2D): 1.1 cm (0.6 cm-1.1 AV maxP mmHg ( - ) syst. PAP: 39 mmHg ( - ) cm) LVOT Vmax: 0.70 m/s (0.7 m/s-1.1 PV Vmax: 0.90 m/s (0.6 m/s-0.9 LVDd (2D): 4.6 cm (4.2 cm-5.9 m/s) m/s) cm) AR (PHT): 509 ms ( - ) PV PGmax: 3 mmHg ( - ) LVDs (2D): 3.4 cm (2.1 cm-4 MV E Vmax: 0.76 m/s ( - ) cm) LVPWd (2D): 1.2 cm (0.6 cm-1 cm) LVEF (MOD2): 46 % (>=55 %) Visual EF: 50 % Continued Measurements: Patient: YUE GLOVER Study Date: 10/09/2017 Page 1 of 2 02:27 PM Chambers Valvular Assessment AV/MV Valvular Assessment TV/PV Name Value Name Value Name Value LADs Lon.9 cm MV E/E' Septal: 9.60 CVP (est.): 5 mmHg LA Area: 26.2 cm2 MV E/E' Lateral: 6.10 AR Vmax: 3.01 cm/s Findings: Left Ventricle: Normal size left ventricle. Borderline concentric LV hypertrophy. The ejection fraction is visually estimated to be 50 %. No regional wall motion abnormality. The rhythm is atrial fibrillation. The EF 50%. Right Ventricle: Normal size right ventricle. Normal RV function. Left Atrium: The left atrium is severely dilated. Right Atrium: The right atrium is severely dilated. Mitral Valve: Mild mitral valve leaflet calcification is present. Mild to moderate mitral regurgitation. Aortic Valve: The aortic valve is tri-leaflet. Mild aortic cusp calcification is noted. No aortic valve stenosis is present. Mild to moderate aortic valve regurgitation. Tricuspid Valve: The tricuspid valve appears normal. Mild to moderate tricuspid valve regurgitation. The pulmonary artery pressure is mildly increased. Pulmonic Valve: The pulmonic valve is normal in appearance and function. Aorta: The aorta is normal. Exam Comments: This echo was performed during a emergent pre-op. (No Signature Object) Patient: YUE GLOVER Study Date: 10/09/2017 Page 2 of 2 02:27 PM [id number]
[2017-10-09] MEDS ORDERED: BUPIVACAINE 0.25% 30 ML SDV ONE (15:47)
[2017-10-09] MEDS ORDERED: PROPOFOL 200 MG/20 ML VIAL ONE (15:50)
[2017-10-09] MEDS ORDERED: ROCURONIUM 50 MG/5 ML VIAL ONE ×2 (15:50→17:40)
[2017-10-09] MEDS ORDERED: DEXAMETHASONE 4 MG/ML VIAL ONE (15:51)
[2017-10-09] MEDS ORDERED: LR 1,000 ML IV ONE (15:56)
--- NOTE | 2017-10-09 16:02 | PDCONSULT ---
Hearing Care Practitioner Note: Acute Care Surgery Consult 81 y/o male with long standing A-fib presents with sudden onset abd pain, N/V. Pt had RVR on arrival which was controlled with Diltiazem. CT showed bowel perforation near the terminal ileum. PMH: A-fib non-smoker no relevant surgical history SH: here with his daughter Cookie who has his MPOA [place] yesterday FH: paternal grandfather had colon CA age 55 ROS: last colonoscopy age 77 negative PE: P90 BP 190/106 R 18 T 36.5 HEENT: + JVD 3-4 cm Lungs CTA CVS: IRRR w/o murmur Abd: absent bowel sounds, tender throughout with guarding Ext: WD w/o edema, pedal pulses symmetrical Neuro: o x 3 no focal deficits, answers briefly due to pain and narcotics CT: reviewed, some motion artifact: some thickening of the small bowel/TI with surround air and free fluid Imp: 1.peritonitis, suspect small bowel perforation based on CT etiology unclear but could be due to arterial embolism, IBD, Meckle's, neoplasm, other sites of perforation including colon/stomach/duodenum 2. A-fib presenting with RVR, rate controlled with Diltiazem Rec: to OR for laparotomy/probable bowel resection We discussed surgery and risks as well as his Advanced Directives Informed consent was obtained from his daughter Cookie Falk MD Enoch, FACS
--- NOTE | 2017-10-09 16:10 | PDANEPAE ---
ANE History of Present Illness Exploratory laparotomy ANE Past Medical History - Cardiovascular History Hx Hypertension: No Hx Arrhythmias: Yes Hx Chest Pain: No Hx Coronary Artery / Peripheral Vascular Disease: No Hx CHF / Valvular Disease: Yes Cardiovascular History Comment: hx of atrial fibrillation, has refused medical therapy. Echo today shows EF 50%, dilated atria, LVH, MR - Pulmonary History Hx Oxygen in Use at Home: No Hx Sleep Apnea: No - Endocrine History Hx Diabetes: No Hypothyroid: No Hyperthyroid: No Obesity: no - Renal History Hx Renal Disorders: No - Liver History Hx Hepatic Disorders: No - Neurological & Psychiatric Hx Hx Neurological and Psychiatric Disorders: No - Chronic Pain History Chronic Pain: No ANE Review of Systems Review of Systems: - Exercise capacity METS (RN): 5 METS ANE Patient History - Allergies Allergies/Adverse Reactions: No Known Allergies Allergy (Verified 10/09/17 11:01) - Home Medications Home Medications: Multivitamins [Multivitamin (*)] 1 each PO DAILY 10/09/17 [Last Taken Unknown] Temazepam [Restoril 15 MG (*)] 15 mg PO HSPRN PRN 10/09/17 [Last Taken Unknown] - NPO status NPO Since - Liquids (Date): 10/09/17 NPO Since - Liquids (Time): 08:00 NPO Since - Solids (Date): 10/09/17 NPO Since - Solids (Time): 08:00 - Anes Hx Anes Hx: no prior problems - Smoking Hx Smoking Status: Never smoked Marijuana use: No - Alcohol Use Alcohol Use: Other (2 drinks/day) - Family Anes Hx Family Anes Hx: none ANE Labs/Vital Signs - Labs Result Diagrams: 10/09/17 11:30 10/09/17 11:30 - Vital Signs Blood Pressure: 101/72 Heart Rate: 86 Respiratory Rate: 20 O2 Sat (%): 94 Height: 172.72 cm Weight: 72.575 kg ANE Physical Exam - Airway Neck exam: FROM Mallampati Score: Class 2 Mouth exam: normal dental/mouth exam - Pulmonary Pulmonary: clear to auscultation, reduced air movement - Cardiovascular Cardiovascular: irregularly irregular - ASA Status ASA Status: III, E ANE Anesthesia Plan Anesthesia Plan: general endotracheal anesthesia (Discussed procedure/risks with patient's daughter.) Lines/Monitors: arterial line
[2017-10-09] MEDS ORDERED: DILTIAZEM HCL/D5W 125 ML IV ONE (16:30)
[2017-10-09] MEDS ORDERED: SUGAMMADEX SODIUM 200 MG/2 ML VIAL IVP ONE (18:25)
[2017-10-09] MEDS ORDERED: HYDROmorphONE/DILAUDID 1 MG/ML INJ IVP PRN (18:39)
[2017-10-09] MEDS ORDERED: NALOXONE HCL 0.4 MG/ML INJ IVP PRN (18:39)
[2017-10-09] MEDS ORDERED: fentaNYL 100 MCG/2 ML INJ IVP PRN (18:39)
--- NOTE | 2017-10-09 18:39 | POSTOPPROG ---
Post Op Note Date of Operation: 10/09/17 Surgeon: Charles Kendall (, FACS) [employer] Repairer: Marni Pruitt, RN-FA Anesthesiologist: Garrett Treadwell MD Anesthesia: GET(General Endotracheal) Pre-op Diagnosis: bowel perforation Post-op Diagnosis: perforation proximal sigmoid colon with fecal peritonitis Procedure: laparotomy/sigmoid colectomy/end colostomy/drainage Findings: diverticulosis/2cm perforation sigmoid Inf/Abcess present in the surg proc area at time of surgery?: Yes Depth: Organ Space EBL: 50-100 (50) Drains: Dylon Aguillon [place]
[2017-10-09] MEDS ORDERED: LR 1,000 ML IV SCH (19:00)
[2017-10-09] MEDS: HEPARIN 5,000 UNIT/0.5 ML INJ SC SCH (19:45)
[2017-10-09] MEDS: PIPERACILLIN/TAZO 4.5 GM/DEX 100 ML IV SCH (20:01)
[2017-10-09] MEDS: HYDROmorphONE/DILAUDID 1 MG/ML INJ IVP PRN (21:06)
--- NOTE | 2017-10-09 21:37 | POSTANESTH ---
Post Anesthetic Evaluation Cardiovascular Status: Similar to Pre-Op Cond Respiratory Status: Normal, Stable Level of Consciousness/Mental Status: Can Participate in Eval Pain Control: Adequate, Prn Tx Ordered Nausea/Vomiting Control: Adequate, Prn Tx Ordered Complications Possibly Related to Anesthesia: None Noted
[2017-10-09] MEDS ORDERED: MAGNESIUM SULF 2 GM/WATER 50 ML IV ONE (22:00)
--- NOTE | 2017-10-09 23:55 | GOP ---
[f rep st] OPERATIVE REPORT DATE OF OPERATION: 10/09/2017 SURGEON: Charles Kendall MD, FACS [place] SHERIFF: Marni Belle RN-FA. ANESTHESIA: General endotracheal. ANESTHESIOLOGIST: Garrett Treadwell MD. PREOPERATIVE DIAGNOSIS: Peritonitis with perforation, hollow viscus. POSTOPERATIVE DIAGNOSIS: Perforation proximal sigmoid colon with fecal peritonitis. PROCEDURE PERFORMED: Laparotomy, sigmoid resection, end colostomy and drainage of peritonitis. FINDINGS: Approximately 2 cm perforation in the proximal sigmoid colon. Secondary serositis of the small bowel with edema. Moderate diverticulosis without particularly significant findings to suggest diverticulitis. Cloudy peritoneal fluid and pelvic abscess contents submitted for aerobic and anaerobic culture and sensitivity. Approximately 3 cm fecal ball recovered from the peritoneal cavity in the pelvis. ESTIMATED BLOOD LOSS: 50 mL. DESCRIPTION OF PROCEDURE: After informed consent was obtained, the patient was brought to the operating room and placed under general anesthesia. The abdomen was prepped and draped in the usual fashion. A Zhao catheter was placed. The patient was noted to be febrile in the operating room. The abdomen was entered through a midline incision, and cloudy foul-smelling peritoneal fluid was encountered. The preoperative imaging had suggested a small bowel etiology of the perforation, and the small bowel was gently run from the ileocecal valve to the more proximal jejunum and secondary inflammatory changes of the distal small bowel were observed without evidence of ischemia or perforation. Palpation of the pelvis revealed a free-floating fecal ball measuring approximately 3 cm in diameter and after this was retrieved from the peritoneal cavity along with evacuation of approximately 500 cc of purulent fluid from the pelvis, I elected to explore the colon. Gently packing the small bowel cephalad , the colon was explored, and a 2 cm perforation site was noted in the sigmoid colon just at the pelvic brim. The bowel was viable in appearance and not particularly thickened, and there were numerous other diverticula present in the area, so I suspect this was due to a ruptured large diverticulum or stercoral ulcer. The bowel was inspected proximally and distally and noted to be somewhat packed with feces. I elected to perform resection and diverting colostomy given the patient's septic presentation. The bowel was divided proximally after scoring the mesentery with a RUEL stapler and distally in a similar fashion above and below the perforation site. The segment of colon was detached from the mesentery which was clamped divided ligated with 3-0 Vicryl ligatures. The specimen was removed from the field. The distal stump was marked with a 3-0 Prolene suture at either end for later identification. The peritoneal cavity was then irrigated with 4 L of warm saline solution carefully and methodically irrigating every quadrant until the effluent was clear. The patient's stomach was moderately distended and Dr. Treadwell passed an orogastric tube for decompression. Hemostasis appeared secure in the operative field. The small bowel was again inspected and noted to be viable and intact without secondary perforation sites. A 10 mm flat Dylon-Aguillon drain was brought through a right lower quadrant incision and placed in the dependent portion of the pelvis. An ostomy site was selected lateral to the umbilicus at the rectus border, and a small disc of skin excised. The subcutaneous tissue was dissected down to the fascia which was opened in a cruciate fashion through the abdominal wall layers into the peritoneal cavity. This was dilated, and hemostasis was secured with cautery. The bowel was then passed through the stomal opening and secured with a Hawa clamp. The fascia was then closed with continuous running #1 PDS suture. A clean closure setup was deployed. Gowns and gloves and all instruments were changed, and the field was redraped. The wound was irrigated again and approximated with interrupted woodrow over a quarter-inch Trenton drain which was left out of the dependent portion of the incision. The drain was secured to the skin with 3-0 nylon suture as was the Dylon-Aguillon drain. The ostomy was then matured by resecting the staple line with scissors. The stoma was everted and secured to the sub-dermis with interrupted 3-0 chromic sutures circumferentially. A 2 -3/4 inch Ganesh appliance was fashioned and placed over the stoma. The patient was extubated and brought to the recovery room in satisfactory condition. Needle, sponge, and instrument count were correct. COMPLICATIONS: None. /[id number]/MODL MTDD
[2017-10-10] MEDS: HYDROmorphONE/DILAUDID 1 MG/ML INJ IVP PRN ×9 (00:07→21:50)
[2017-10-10] MEDS: LORazepam 2 MG/ML INJ IVP PRN ×2 (01:13→16:49)
[2017-10-10] MEDS: PIPERACILLIN/TAZO 4.5 GM/DEX 100 ML IV SCH ×2 (01:50→09:07)
[2017-10-10 05:34] LABS: PLATELET COUNT 247 10^3/uL (150-400)
--- NOTE | 2017-10-10 07:40 | SOAPPROG ---
SOAP Progress Note Assessment/Plan: Assessment: Plan: Subjective: awake, mildly confused Objective: Vital Signs Temp Pulse Resp BP Pulse Ox 37.2 C 106 H 23 H 148/83 H 93 10/10/17 04:00 10/10/17 06:00 10/10/17 06:00 10/10/17 06:00 10/10/17 06:00 Microbiology 10/09/17 17:28 Gram Stain - Final Peritoneal Fluid - Eswab Laboratory Results 10/10/17 05:25 10/10/17 05:25 10/09/17 10/10/17 10/11/17 05:59 05:59 05:59 Intake Total 8545 Output Total 2435 Balance 6110 PT 13.8 SEC (12.0-15.0) 10/09/17 11:30 INR 1.04 (0.83-1.16) 10/09/17 11:30 Physical Exam - Physical Exam General Appearance: thin, other (sitting up in chair/mildly confused) Respiratory: normal breath sounds, decreased breath sounds Cardiac/Chest: regular rate, rhythm Peripheral Pulses: 4+: dorsalis-pedis (R), dorsalis-pedis (L) Abdomen: soft, distended, other (absent bowel sounds, stoma viable, dressings intact) Male Genitalia: deferred, other (Zhao cath) Rectal: deferred, black stool Skin: normal color Extremities: normal range of motion Neuro/Psych: no motor/sensory deficits ICD10 Worksheet Patient Problems: Problems Problem Status Onset A-fib Acute Hypoxemia Acute Perforated bowel Acute CHF (congestive heart failure) Acute
[2017-10-10] MEDS: HEPARIN 5,000 UNIT/0.5 ML INJ SC SCH ×2 (08:36→18:05)
--- NOTE | 2017-10-10 09:29 | ASMTCASEMG ---
Living Arrangements What is your living Answers: Alone arrangement? Who do you live with? Type Of Residence What kind of residence do Answers: Apartment you live in? Discharge Plan Comments Coordination Status Comments Notes: Patient is a 81yo single male who was admitted for a perforated ileum and perioperative evaluation. Patient also has atrial fibrillation with rapid ventricular response indicative of his severe illness. Patient has sepsis and respiratory failure likely due to intraabdominal infection. Wound care ordered. No other therapies ordered at this time. D/C needs TBD. CM will follow. Date Signed: 10/10/2017 09:28 AM Electronically Signed By:Erica Marte LCSW
--- NOTE | 2017-10-10 11:42 | HOSPPROG ---
Hospitalist Progress Note Assessment/Plan: Mr. Thorpe is a 81 yo male who presents with a perforated ileum s/p repair Perforated Proximal Sigmoid Colon with Fecal Peritonitis - S/p Laparotomy with sigmoid resection, end colostomy and drainage of peritonitis in OR on 10/09 - Tolerated surgery well - Management of sepsis/peritonitis as below - Surgery is following patient, they expect post op ileus - Pain control PRN A Fib w RVR - Hx of A Fib, was previously on rate controlling meds per but stopped taking them - Currently on diltiazem infusion, will start PO dilt for rate control and wean off of gtt - Will hold off on starting AC in setting of recent surgery Sepsis - Tachypnic and tachycardic on admissoin with elevated WBC count and LA - LA has trended down from 5.2->1.8 sS/p perforation repair and IVF - S/p Ertapenum in ED, will continue Zosyn for now in perioperative period Code: Full Ppx: SubQ Heparin BID Diet: Clear Liquid Dispo: Pending clinical course Subjective: Patient states he is feeling better this AM. He is having pain at surgical site. Objective: Vital Signs Temp Pulse Resp BP Pulse Ox 36.5 C 98 20 166/91 H 94 10/10/17 08:00 10/10/17 10:00 10/10/17 10:00 10/10/17 10:00 10/10/17 10:00 Microbiology 10/09/17 17:28 Gram Stain - Final Peritoneal Fluid - Eswab Laboratory Results 10/10/17 05:25 10/10/17 05:25 10/09/17 10/10/17 10/11/17 05:59 05:59 05:59 Intake Total 8545 Output Total 2435 90 Balance 6110 -90 PT 13.8 SEC (12.0-15.0) 10/09/17 11:30 INR 1.04 (0.83-1.16) 10/09/17 11:30 - Physical Exam Constitutional: no apparent distress Eyes: PERRL Ears, Nose, Mouth, Throat: moist mucous membranes Cardiovascular: irregularly irregular, tachycardia Respiratory: no respiratory distress, clear to auscultation Gastrointestinal: soft, non-tender abdomen, other (colostomy bag in place) Genitourinary: no bladder tenderness Skin: warm Musculoskeletal: no joint effusions Neurologic: AAOx3 Psychiatric: interacting appropriately ICD10 Worksheet Patient Problems: Problems Problem Status Onset A-fib Acute Hypoxemia Acute Perforated bowel Acute CHF (congestive heart failure) Acute
--- NOTE | 2017-10-10 11:58 | PDMN ---
Medical Necessity Medical necessity: Pt meets IP criteria per MD & MCG M-160; est los >2 mn for eval/tx of sepsis w/respiratory failure & AFIB w/RVR in the setting of intraabdominal infection/perforated ileum; requiring further ICU monitoring, possible intubation, Cardio consult for pre-op eval, Surgery consult w/emergent laparotomy, IV abx, IV Diltiazem & IVFs; comorbid advanced age, AFIB, CHF; per H &P & order 10/09/17
[2017-10-10] MEDS: DILTIAZEM SR 90 MG CAP PO SCH ×2 (12:30→19:47)
[2017-10-10] MEDS: PIPERACILLIN/TAZO 3.375 GM/DEX 50 ML IV SCH ×2 (12:31→18:05)
--- NOTE | 2017-10-10 13:23 | GCON ---
[f rep st] CONSULTATION CARDIOLOGY CONSULT NOTE. CHIEF COMPLAINT: Abdominal pain, status post perforated proximal sigmoid colon with fecal peritoniti s. HISTORY OF PRESENT ILLNESS: Mr. Laura Thorpe is a 81-year-old male with a history of permanent atrial fibrillation, mild systolic CHF, mild to moderate aortic regurgitation, mild to moderate MR, who was admitted yesterday with abdominal pain. He had a few days of antecedent pain as well as nausea and vomiting. He was taken urgently to the operating room due to signs of peritonitis and is status post sigmoid resection with end colostomy and drainage of peritonitis. Currently, he reports some abdominal pain that has been controlled with pain medications. In regard to his heart, he denies any palpitations, dyspnea, presyncope, syncope, or edema. He is noting some rigor-like symptoms. PAST MEDICAL HISTORY: 1. Permanent atrial fibrillation, having refused medications in the past. 2. Mild systolic CHF with an ejection fraction of 50%. MEDICATIONS: Outpatient medications include; Russian herbs, testosterone. ALLERGIES: No known drug allergies. FAMILY HISTORY: Positive for CVA, colon cancer and Hodgkin. SOCIAL HISTORY: The patient has 2 children. Alcohol use is reported as being 4-5 beers nightly. He is retired. He does use marijuana. He is a never smoker. REVIEW OF SYSTEMS: As per HPI. A complete 10-point review of systems was obtained, is negative exce pt for what is dictated. PHYSICAL EXAMINATION: VITAL SIGNS: BP of 166/91, heart rate of 116, respirations 20, heart rate of 98, O2 saturation 94% on 2 L/minute, temp of 97.7 degrees Fahrenheit. GENERAL: He is a pleasant mal e, appearing mildly uncomfortable. HEAD: Normocephalic, atraumatic. Eyes are without scleral icter us. Mucous membranes are dry. HEART: Irregularly irregular. LUNGS: Very diminished without rhonc hi or rales auscultated. ABDOMEN: Tender with bowel sounds present. : No Zhao present. SKIN: Warm and dry. PSYCH: Normal mood and affect. LABORATORY DATA: CBC with WBC 12.73, hemoglobin 16, hematocrit 45, platelet count of 247. BMP with sodium 135, potassium 4.8, chloride 108, CO2 21, BUN 22, creatinine 0.7, glucose of 136. A 12-lead ECG from 10/09/2017, personally interpreted, demonstrates atrial fibrillation with rapid ve ntricular rate, 3-beat run of VT noted. This is polymorphic. Echo shows EF of 50%. LA severely dil ated, RA severely dilated. He has ximy-bp-dfbtnixy MR, mild to moderate AR. 10/09/2017, abdominal C T reviewed shows bowel perforation, which may be due to a Meckel's diverticulum. [facility] notes and [facility] notes reviewed and summarized above. IMPRESSION AND PLAN: Mr. Laura Thorpe is a 81-year-old male who has been known to have permanent atri al fibrillation. He has declined medical therapies in the past. 1. Perforated proximal sigmoid colon with fecal peritonitis. He proceeded to the OR with Dr. Enoch garcia and he is status post laparotomy with sigmoid resection and colostomy and drainage of perito nitis. He is recuperating at this time and noting some mild to moderate postoperative pain. Pain an d infection are likely the triggers for his atrial fibrillation with rapid ventricular rates. 2. Permanent atrial fibrillation. He has had atrial fibrillation dating back to at least 2011. He has been relatively asymptomatic and has been treated with metoprolol and warfarin initially. He sto pped both of those medications as he felt poorly on those. His CHADS-VASc is at least 3, possibly 4 though. He has had carotid Dopplers in our office that show mild carotid disease. His blood pressur es are also elevated, which may be as a result of acute illness and current hospitalization. We disc ussed the rationale of anticoagulation therapy. He is currently on heparin. As he recovers from thi s illness, we will address long-term oral anticoagulation as an option. Currently, he is on diltiaze m ER at 90 twice daily and rates are mostly controlled. This could be increased further, especially given his blood pressure is not excellently controlled. We could consider going up to 120 twice abbie y of this medication. We will follow for the next day. 3. Sepsis. This is identified by his tachypnea, tachycardia, elevated white count and lactic acidos is. This is being treated by Hospital Medicine. /[id number]/MODL
--- NOTE | 2017-10-10 17:14 | ASMTCMCOM ---
CM Note CM Note Notes: A family meeting was held today for patient. Please see Sheilasarath Hameed's summary in notes. Patient's states patient is most likely going to want to do outpatient therapy. He has been an active person lifting weights, running and doing yoga. Spoke with Dr. Guzman to get OT/PT evals ordered since they had not been to date. Depending on patient's recovery, outpatient may be appropriate. CM will follow. Date Signed: 10/10/2017 05:14 PM Electronically Signed By:Erica Marte LCSW
[2017-10-10] MEDS ORDERED: LORazepam 2 MG/ML INJ IVP PRN (17:37)
--- NOTE | 2017-10-10 18:04 | GCON ---
[f rep st] CONSULTATION CRITICAL CARE CONSULTATION DATE OF CONSULTATION: 10/10/2017 REASON FOR CONSULTATION: Intensive care unit evaluation and medical management following abdominal surgery. HISTORY: The patient is a very pleasant 81-year-old, who presented to the hospital yesterday with acute-onset abdominal pain, associated with nausea and vomiting. CT scan suggested a perforated bowel. He was taken to the operating room and found to have a bowel perforation at the proximal sigmoid colon with peritonitis. Sigmoid resection and a colostomy were done by Dr. Kendall. The patient was returned to the intensive care unit in good condition. He does have a history of atrial fibrillation. He was on beta-blockers and anticoagulation with Coumadin in the past and was followed by Dr. Park. He self discontinued both these medications secondary to side effects. He is on no medications now, only Restoril. He did have a rapid, irregular rate on admission. He was controlled with diltiazem, as he was n.p.o. He has been seen by Cardiology. A cardiac echo done this admission has shown an ejection fraction of 50%. Both atria are dilated, and there is ddqc-yu-qepyeexh mitral regurgitation, as well as aortic insufficiency. He currently denies shortness of breath. He does have some intermittent abdominal pain, which is being managed with p.r.n. IV Dilaudid. Vital signs are stable. PAST MEDICAL HISTORY: Largely unremarkable except for his chronic atrial fibrillation. He is followed by Dr. aYng as a primary care physician. SOCIAL HISTORY: The patient is a retired teacher. He is lived in the [facility] for about 20 years. Tobacco is negative. He generally drinks 2 large drinks of liquor every day. He has a son and daughter, who live in this area. FAMILY HISTORY: Noncontributory. REVIEW OF SYSTEMS: A 10-point review of systems is negative except as mentioned above. The patient is largely active, walks and hikes regularly. Is independent, drives, etc. His 25 years ago. PHYSICAL EXAMINATION: GENERAL: Reveals a pleasant gentleman, who is sitting up in the chair. He has no complaints at this time. VITAL SIGNS: Blood pressure is elevated at 146/102, heart rate approximately 105 with atrial fibrillation on the monitor. Respiratory rate is 20. On 2 L saturations are 95 %. He is afebrile. HEENT: Unremarkable for lymphadenopathy or thyromegaly. NECK: There is no jugular venous distention. CHEST: Clear. Breath sounds are diminished at the bases. HEART: Irregular. There is a soft systolic murmur. No gallops are appreciated. ABDOMEN: Postoperative. A few bowel sounds are present. A Dylon-Aguillon drain is in place. Zhao catheter has been removed. EXTREMITIES: Unremarkable for edema, cords, or tenderness. NEUROLOGIC: Examination is within normal limits. . DATABASE: Radiologic studiesare as outlined above. LABORATORIES: White blood cell count is 12,700, hematocrit 45, platelets are 247,000. PT and PTT on admission were normal. Lactate today is 1.8. Basic metabolic panel shows a sodium of 135, potassium 4.8, CO2 of 21 with anion gap of 6, BUN is 22 with a creatinine of 0.7. Urinalysis was negative. Hepatitis serologies previously were negative. ASSESSMENT: 1. Status post perforated bowel with peritonitis. He is status post surgical repair and colostomy. He is being treated with Zosyn and clinically is doing quite well. Mild sepsis has resolved. He was never significantly hypotensive. 2. Chronic atrial fibrillation. He has refused anticoagulation and beta- blockers. He is currently partially rate controlled with diltiazem, which seems appropriate. Cardiology has evaluated the procedure and will be following the patient and will make their best recommendations to the patient going forward. 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 He was admitted 2-3 months ago with mild congestive heart failure and did require diuresis at that time. 3. Systemic hypertension. He was hypertensive previously and has been hypertensive on this admission. He is on diltiazem orally primarily for his rate control. He has refused beta-blockers in the past. Lisinopril or another antihypertensive may be needed. Blood pressure will be followed for now. 4. History of alcohol abuse. He does drink relatively heavily. There are no signs of alcohol withdrawal at this time, but that remains a possibility. He is receiving Ativan p.r.n. for anxiety, which does seem to be of benefit. This will be continued. If needed, the Clinical [place] Withdrawal Assessment protocol can be added to his regimen if indicated. PLAN AND RECOMMENDATIONS: The patient will be kept in the intensive care unit. Intravenous fluids and antibiotics will be continued. Diltiazem will be continued orally. Blood pressure will be followed and antihypertensives such as lisinopril added if needed. Beta-blockers will be avoided per the wishes of the patient. Laboratory and clinical status will be followed. Ativan will be continued for anxiety. The patient will be monitored for possible alcohol withdrawal and if needed, the CIWA protocol will be initiated. Further plans and recommendations will be made based on his progress over the next 12-24 hours. /[id number]/MODL and [id number]/MODL [facility]
[2017-10-10] MEDS: FAMOTIDINE 20 MG TAB PO SCH (19:47)
[2017-10-11] MEDS: PIPERACILLIN/TAZO 3.375 GM/DEX 50 ML IV SCH ×2 (00:18→06:36)
[2017-10-11] MEDS: HYDROmorphONE/DILAUDID 1 MG/ML INJ IVP PRN ×2 (02:46→07:49)
[2017-10-11 05:30] LABS: PLATELET COUNT 218 10^3/uL (150-400)
[2017-10-11] MEDS: HEPARIN 5,000 UNIT/0.5 ML INJ SC SCH ×2 (06:39→18:16)
--- NOTE | 2017-10-11 07:48 | SOAPPROG ---
SOAP Progress Note Assessment/Plan: Assessment:POD #2 s/p sigmoid colectomy/Matteo's procedure for perforated sigmoid/fecal peritonitis cultures + Pseudomonas Day #2 Zosyn symptoms of urinary retention Plan:Flomax/prn cath bladder scan transfer SDU/continue telemetry monitoring Cardiology, Crit Care/Hospitalist care appreciated 10/11/17 07:45 Subjective: sitting up in chair, urinary urgency/voiding hourly Objective: Vital Signs Temp Pulse Resp BP Pulse Ox 36.5 C 81 19 139/83 H 93 10/11/17 04:00 10/11/17 06:00 10/11/17 06:00 10/11/17 06:00 10/11/17 06:00 Microbiology 10/09/17 17:28 Gram Stain - Final Peritoneal Fluid - Eswab Laboratory Results 10/11/17 05:15 10/11/17 05:15 10/10/17 10/11/17 10/12/17 05:59 05:59 05:59 Intake Total 8545 2820 Output Total 2435 2425 325 Balance 6110 395 -325 PT 13.8 SEC (12.0-15.0) 10/09/17 11:30 INR 1.04 (0.83-1.16) 10/09/17 11:30 - Pending Discharge Pending Discharge Within 24 Hours: No Pending Discharge Within 48 Hours: No Physical Exam - Physical Exam General Appearance: alert, mild distress Respiratory: lungs clear, normal breath sounds Cardiac/Chest: tachycardia, irregularly irregular Abdomen: other (QUINN sero-sang) Male Genitalia: deferred Rectal: deferred Skin: warm/dry Neuro/Psych: alert, other ICD10 Worksheet Patient Problems: Problems Problem Status Onset A-fib Acute Hypoxemia Acute Perforated bowel Acute CHF (congestive heart failure) Acute
[2017-10-11] MEDS ORDERED: FAMOTIDINE 20 MG/NACL 50 ML IV SCH (09:00)
--- NOTE | 2017-10-11 09:40 | SOAPPROG ---
KATIE Progress Note Assessment/Plan: Assessment:1. permanent afib..pt refusing anticoagulation ..he seems to understand the risks of embolic potential..agrees to as usage..rate is under good control on diltiazem..no dosage change today ..increase activity as approved by dr collazo...pt has agreed to take out pt diltiazem if needed for rate control Plan:1. no cv changes today 10/11/17 09:37 Subjective: pt is feeling well today with jsut some post op pain..hr in the 90's...no cv c/o Objective: Vital Signs Temp Pulse Resp BP Pulse Ox 36.5 C 90 20 146/81 H 97 10/11/17 04:00 10/11/17 08:00 10/11/17 08:00 10/11/17 08:00 10/11/17 08:00 Microbiology 10/09/17 17:28 Gram Stain - Final Peritoneal Fluid - Eswab Laboratory Results 10/11/17 05:15 10/11/17 05:15 10/10/17 10/11/17 10/12/17 05:59 05:59 05:59 Intake Total 8545 2820 Output Total 2435 2425 835 Balance 6110 395 -835 PT 13.8 SEC (12.0-15.0) 10/09/17 11:30 INR 1.04 (0.83-1.16) 10/09/17 11:30 Physical Exam - Physical Exam Respiratory: lungs clear Cardiac/Chest: irregularly irregular, No edema, No JVD ICD10 Worksheet Patient Problems: Problems Problem Status Onset A-fib Acute CHF (congestive heart failure) Acute Perforated bowel Acute Hypoxemia Acute
--- NOTE | 2017-10-11 10:40 | WOCRNPDOC ---
LISSA Advanced Assessment Note - Colostomy Assessment, Advanced Left Lower Abdomen Colostomy Stoma Colostomy Appliance Intact: Yes Colostomy Appliance Currently in Use: Two Piece Flat, 2 3/4, Cut to Fit Stoma Color: Red Stoma Turgor: Moist, Shiny Stoma Shape: Round Stoma Height: Protruding Colostomy Effluent: Mixed Fecal/Serosangenous Colostomy Details: End Colostomy Comment/Treatment Details: Day one teaching started with patient though he seemed a bit forgetful and repeated the same questions mulitple times. Discussed one vs two piece appliances and practiced opening drain pouch of coloplast and jorge. Coloplast is much easier for patient to manage and he would prefer a one piece drainable pouch so those will be initiated after stoma is fully assessed on saturday. Patient did seem overwhelmed and was confused about many aspects of his osotmy,its care and his surgery. Initial patient ostomy education in written format was also given to the patient from [facility]. Please bring a mirror on Saturday so patient may see his stoma. It is below his waistline and patient cannot visualize it when sitting. Patient is aware that pouch will be changed several days in a row for teaching purposes even though at home it will only need to be changed every 4-5 days. First pouch change will be Saturday. Did not discuss secure start as patient was confused.
[2017-10-11] MEDS: FAMOTIDINE 20 MG TAB PO SCH ×2 (10:45→20:13)
[2017-10-11] MEDS: TAMSULOSIN HCL 0.4 MG CAP PO SCH (10:45)
[2017-10-11] MEDS: DILTIAZEM SR 90 MG CAP PO SCH ×2 (10:45→20:13)
[2017-10-11] MEDS: HYDROCODONE/APAP 5/325 TAB PO PRN ×3 (13:01→22:31)
[2017-10-11] MEDS: PIPERACILLIN/TAZO 4.5 GM/DEX 100 ML IV SCH ×2 (13:02→18:17)
--- NOTE | 2017-10-11 16:43 | PDINTPN ---
Automobile Appraiser Progress Note Assessment/Plan: Assessment: Status post colonic perforation, partial colectomy with a Matteo pouch and ostomy. Doing well. Not yet passing stool or air. Peritonitis: Secondary to 1. On Zosyn. Growing Pseudomonas, Enterococcus and E coli. Sensitivities pending. Chronic atrial fibrillation: Better rate control with diltiazem. BP fine. He is being seen by Cardiology. Urinary retention: On Flomax. Prophylaxis: On enoxaparin and famotidine. Plan: Continue present care in the intensive care unit on step-down. Continue antibiotics. Await sensitivities on bacteria. Increase activity as tolerated. Continue diltiazem. Add oral aspirin prior to discharge. Follow laboratory intermittently as needed. 25 min of critical care time spent directly with the patient. Issues discussed with the patient, nursing, Cardiology, and the ICU multi disciplinary team. Subjective: Doing okay. Intermittent abdominal discomfort. No gas in colostomy yet. Denies shortness of breath. Objective: Vital Signs Temp Pulse Resp BP Pulse Ox 36.4 C 101 H 20 153/87 H 92 10/11/17 16:00 10/11/17 16:00 10/11/17 16:00 10/11/17 16:00 10/11/17 16:00 Microbiology 10/09/17 17:28 Gram Stain - Final Peritoneal Fluid - Eswab Laboratory Results 10/11/17 05:15 10/11/17 05:15 10/10/17 10/11/17 10/12/17 05:59 05:59 05:59 Intake Total 8545 2820 Output Total 2435 2425 1235 Balance 6110 395 -1235 PT 13.8 SEC (12.0-15.0) 10/09/17 11:30 INR 1.04 (0.83-1.16) 10/09/17 11:30 Laboratory Tests 10/11/17 05:15 Calcium 8.8 Phosphorus 2.6 Magnesium 1.9 Total Bilirubin 1.0 AST 34 ALT 29 Albumin 3.2 L Physical Exam - Physical Exam General Appearance: alert, no apparent distress, other (Up in the chair earlier- walked in the barillas) EENT: PERRL/EOMI, other (On room air) Neck: normal inspection (No JVD) Respiratory: lungs clear (Anteriorly), decreased breath sounds (At the bases bilaterally), No rales, No rhonchi, No wheezing Cardiac/Chest: irregularly irregular (Better rate control, 84-104 range.) Abdomen: distended (Mild distension), other (Colostomy bag in place with some brown liquid drainage, no stool comma no air.), No normal bowel sounds ( Improved comma remains diminished), No non-tender (Mild tenderness) Male Genitalia: other (No Zhao catheter) Skin: warm/dry, pallor Lymphatic: no adenopathy Extremities: No pedal edema Neuro/Psych: no motor/sensory deficits, No cognition abnormalities ICD10 Worksheet Patient Problems: Problems Problem Status Onset A-fib Acute CHF (congestive heart failure) Acute Perforated bowel Acute Hypoxemia Acute
--- NOTE | 2017-10-11 16:58 | HOSPPROG ---
Hospitalist Progress Note Assessment/Plan: Subjective Follow-up on perforated sigmoid colon status post sigmoidectomy with end colostomy. No specific complaints from patient today. He was napping during my evaluation but arousable. He his case was discussed with Dr. Quijano on rounds today. We did review his mild white blood cell count elevation and will continue follow for now. No complaints of chest pains or palpitations. Objective Vital signs as detailed below Exam General-patient appears comfortable he is arousable conversant oriented no acute distress Heart-irregular, rate controlled no murmurs Lungs-Clear to auscultation with normal respiratory effort Abdomen-colostomy site with liquid brown stool no bleeding noted abdomen is nondistended -no Zhao catheter in place Extremities-no significant pitting edema Labs as detailed below Assessment plan Perforated sigmoid colon-patient is status post laparoscopic sigmoidectomy with end colostomy. He appears to be recovering appropriately from his surgery. Pain is well seems reasonably well controlled. Atrial fibrillation with rapid ventricular response-patient has been transitioned to oral diltiazem with good rate control. No anticoagulation at this time. Anticoagulation had been declined by patient previously. Will discuss further in the coming days. Leukocytosis-continue to trend. Patient currently is on Zosyn. Chronic systolic heart failure-mild with a estimated ejection fraction at 51%. He looks euvolemic at the current time. Continue to monitor closely. DVT prophylaxis-heparin. Disposition-will see how he does the coming days with PT and OT and determine safe place for discharge. Objective: Vital Signs Temp Pulse Resp BP Pulse Ox 36.4 C 101 H 20 153/87 H 92 10/11/17 16:00 10/11/17 16:00 10/11/17 16:00 10/11/17 16:00 10/11/17 16:00 Microbiology 10/09/17 17:28 Gram Stain - Final Peritoneal Fluid - Eswab Laboratory Results 10/11/17 05:15 10/11/17 05:15 10/10/17 10/11/17 10/12/17 05:59 05:59 05:59 Intake Total 8512 2820 Output Total 4555 2425 1235 Balance 6110 395 -1235 PT 13.8 SEC (12.0-15.0) 10/09/17 11:30 INR 1.04 (0.83-1.16) 10/09/17 11:30 ICD10 Worksheet Patient Problems: Problems Problem Status Onset A-fib Acute Hypoxemia Acute Perforated bowel Acute CHF (congestive heart failure) Acute
[2017-10-12] MEDS: PIPERACILLIN/TAZO 4.5 GM/DEX 100 ML IV SCH ×4 (00:11→17:38)
[2017-10-12] MEDS: HEPARIN 5,000 UNIT/0.5 ML INJ SC SCH ×2 (06:35→18:25)
[2017-10-12] MEDS: HYDROCODONE/APAP 5/325 TAB PO PRN ×3 (06:46→23:53)
[2017-10-12] MEDS: FAMOTIDINE 20 MG TAB PO SCH ×2 (08:21→21:48)
[2017-10-12] MEDS: TAMSULOSIN HCL 0.4 MG CAP PO SCH (08:21)
[2017-10-12] MEDS: DILTIAZEM SR 90 MG CAP PO SCH ×2 (08:21→21:48)
--- NOTE | 2017-10-12 09:01 | SOAPPROG ---
SOAP Progress Note Assessment/Plan: Assessment:POD #3 s/p sigmoid colectomy/Matteo's procedure for perforated sigmoid/fecal peritonitis cultures + Pseudomonas, E coli, enterococci Day #3 Zosyn symptoms of urinary retention-improve Plan: Transfer to med-surg/tele, advance diet Flomax/prn cath A-fib continue telemetry monitoring/Heparin Cardiology, Crit Care/Hospitalist care appreciated Requested ID consult from Dr. Ewing 10/11/17 07:45 10/12/17 09:00 10/12/17 09:01 Subjective: awake, resting comfortably, denies nausea Objective: Vital Signs Temp Pulse Resp BP Pulse Ox 36.4 C 81 20 134/74 H 96 10/12/17 08:00 10/12/17 08:21 10/12/17 08:00 10/12/17 08:21 10/12/17 08:00 Microbiology 10/09/17 17:28 Gram Stain - Final Peritoneal Fluid - Eswab Laboratory Results 10/11/17 05:15 10/11/17 05:15 10/11/17 10/12/17 10/13/17 05:59 05:59 05:59 Intake Total 2820 2136 Output Total 2425 3040 Balance 395 -904 PT 13.8 SEC (12.0-15.0) 10/09/17 11:30 INR 1.04 (0.83-1.16) 10/09/17 11:30 Physical Exam - Physical Exam General Appearance: WD/WN, no apparent distress Cardiac/Chest: regular rate, rhythm Abdomen: non-tender, soft, distended, other Male Genitalia: deferred Rectal: deferred Skin: warm/dry Neuro/Psych: alert, normal mood/affect ICD10 Worksheet Patient Problems: Problems Problem Status Onset A-fib Acute Hypoxemia Acute Perforated bowel Acute CHF (congestive heart failure) Acute
--- NOTE | 2017-10-12 15:22 | HOSPPROG ---
Hospitalist Progress Note Assessment/Plan: Subjective Follow-up on perforated sigmoid colon status post sigmoidectomy with end colostomy. No acute events overnight. Patient's heart rate remains well controlled. Patient denies feeling any palpitations. Objective Vital signs as detailed below Exam General-awake alert conversant no acute distress Heart-regular rate and rhythm no murmurs Lungs-Clear to auscultation with normal respiratory effort Abdomen-nondistended nontender with palpation on the right side of the abdomen colostomy bag with small amounts of brown stool -no Zhao catheter in place Extremities-no significant pitting edema or calf pain with palpation Skin-no concerning skin rashes noted Labs as detailed below Assessment and plan Perforated sigmoid colon-patient is status post laparoscopic sigmoidectomy with end colostomy. Pain appears well controlled he appears to be progressing after his surgery. Peritonitis-clinically seems to be improving. Continue with current Zosyn. Await further recommendations from Infectious Disease. Acute hypoxic respiratory failure-suspecting secondary to atelectasis from surgery. Continue to follow and wean oxygen as able. Consider lung imaging if increased oxygen need. Leukocytosis-improved today with the white blood cell count declining to 11. Continue to trend with current antibiotic therapy. No fevers overnight. Atrial fibrillation-patient did have a rapid ventricular response earlier in the hospital course and was on IV diltiazem for a brief time. His rates are now well controlled with oral diltiazem. Will plan on adding aspirin in the coming days if continued clinical stability. No anticoagulation at this time. DVT prophylaxis-heparin. Disposition-will see how he does the coming days with PT and OT and determine safe place for discharge. Objective: Vital Signs Temp Pulse Resp BP Pulse Ox 36.7 C 86 20 142/94 H 93 10/12/17 15:07 10/12/17 15:07 10/12/17 15:07 10/12/17 15:07 10/12/17 13:35 Microbiology 10/09/17 17:28 Gram Stain - Final Peritoneal Fluid - Eswab Laboratory Results 10/12/17 10:10 10/12/17 10:10 10/11/17 10/12/17 10/13/17 05:59 05:59 05:59 Intake Total 2820 2136 700 Output Total 2425 3040 100 Balance 395 -904 600 PT 13.8 SEC (12.0-15.0) 10/09/17 11:30 INR 1.04 (0.83-1.16) 10/09/17 11:30 ICD10 Worksheet Patient Problems: Problems Problem Status Onset A-fib Acute Hypoxemia Acute Perforated bowel Acute CHF (congestive heart failure) Acute
--- NOTE | 2017-10-12 17:41 | GCON ---
[f rep st] CONSULTATION INFECTIOUS DISEASE CONSULTATION DATE OF CONSULTATION: 10/12/2017 REFERRING PHYSICIAN: Charles Kendall MD REASON FOR CONSULTATION: Fecal peritonitis, with cultures demonstrating pseudomonas. HPI: A 81-year-old male, who has a limited past medical history related to CHF and atrial fibrillation, not on chronic anticoagulation due to personal preference, who presented to the emergency room with decreased responsiveness and abdominal pain on 10/09/2017. CT scan was performed and showed an ileal perforation. Patient rapidly went to the OR where he was found to have an ileal perforation and fecal peritonitis. The patient underwent laparotomy, sigmoid colectomy and colostomy and washout with drain placement. The patient has done well postoperatively and has had increased bowel activity and diet advancement. Cultures have demonstrated pseudomonas, E coli and enterococcus, and surgery team consulted for further guidance about duration and modality of antibiotic therapy. The patient, today, reports feeling generally well with some mild right-sided abdominal pain. PAST MEDICAL HISTORY AND SURGICAL HISTORY: Atrial fibrillation, mild CHF with an ejection fraction of 51%, right hand surgery, basal cell carcinoma, diverticulosis, erectile dysfunction, hyperlipidemia, hypogonadism, neuropathy, tonsillectomy. MEDICATIONS: The patient received a dose of ertapenem 1 time, 10/09; Zosyn 3.375 g IV q.6 from 10/09 to 10/13, and was increased to 4.5 g IV q.6 on the for coverage of pseudomonas when cultures were available. SOCIAL HISTORY: He has 2 children. Never uses alcohol. Uses marijuana. Retired, previously taught school, and has also worked on houses. Never used tobacco. The patient was in [place] for 2 months and returned in July 2017. He regularly visits [place]. FAMILY HISTORY: Positive for colon cancer, stroke, and Hodgkin's. ALLERGIES: NKDA. REVIEW OF SYSTEMS: A complete 10-point review of systems was performed and is negative except as mentioned in the HPI. PHYSICAL EXAM: VITAL SIGNS: BP 134/74, heart rate 78, respiratory rate 20, saturation 96% on 2 L, temperature 36.4. GENERAL: This is a pleasant, nontoxic -appearing male lying in bed in no acute distress. HEENT: Oropharynx dry mucous membranes. Good dentition. NECK: Supple. No lymphadenopathy. CARDIOVASCULAR: Irregularly irregular. No murmur. CHEST: Clear to auscultation bilaterally. ABDOMEN: Mildly distended. He had a midline surgical scar with woodrow in place without surrounding erythema or drainage. He had a QUINN drain in place with serosanguineous fluid. He had a left lower quadrant ostomy stoma site, appeared intact with a small amount of fecal material in the bag. Bowel sounds were present in all 4 quadrants. : No Zhao. EXTREMITIES: No clubbing, cyanosis, or edema. He had good circulation. NEUROLOGIC: He is alert and oriented x4. Moving all 4 extremities equally. SKIN: Without rash. LABORATORIES: No labs available at the time of this dictation from today, but initial white count was 7.92, yesterday was 15.3, hematocrit 44. Creatinine 0.8 , AST 34, ALT 29, alkaline phosphatase 55, albumin 3.2, glucose 110. IMAGING: CT scan: As per HPI. ASSESSMENT/PLAN: A 81-year-old male, who had an ileal perforation, now status post surgical stabilization. Was found to have fecal peritonitis with cultures that are polymicrobial as expected with pseudomonas, E coli and enterococcus on cultures. Pseudomonas and E coli are currently lopes susceptible, and enterococcus susceptibilities are pending and will be available tomorrow. 1. Recommend continue Zosyn 4.5 g intravenous q.6. 2. Requested that levofloxacin susceptibilities for enterococcus would be published and, if susceptible, could consider completion of antibiotic therapy with levofloxacin. Already educated patient regarding separation of supplements by 2 hours with levofloxacin due to potential binding with Ca, Mg, Zn. 3. Infectious Diseases will continue to follow this patient to make final recommendations when susceptibilities available. Thank you for this consult. Greater than 70 minutes spent on this patients care, greater than 50% of time spent counseling, educating, and coordinating care regarding the above mentioned plan. /[id number]/MODL MTDD
[2017-10-12] MEDS: LORazepam 1 MG TAB PO PRN (18:26)
--- NOTE | 2017-10-12 18:50 | PDCARPN ---
Cardiology Progress Note Assessment/Plan: Assessment: 1. Chronic atrial fibrillation 2. Ileal perforation with fecal peritonitis Plan: -rate control strategy: Diltiazem 90 mg p.o. B.i.d. -patient is scheduled to be seen at [facility] next week. 10/12/17 18:50 Subjective: Mr. Thorpe is a pleasant 81-year-old gentleman with known history of chronic atrial fibrillation, moderate aortic insufficiency, moderate mitral regurgitation and LVEF of 50% who was admitted on 10/09/2017 with abdominal pain and decreased responsiveness and found to have ileal perforation. He went urgently to the emergency department and was found have ileal perforation with fecal peritonitis. Mr. Thorpe remains in rate controlled atrial fibrillation on diltiazem 90 mg p.o. B.i.d.. He has a chads Vasc score of 4. He has refused anticoagulation. This is been discussed with numerous scale reclamation tender. I have discussed the role of anticoagulation in the setting of new elevated chads Vasc score with atrial fibrillation. Discussed his stroke risk. Discussed differences in stroke risk reduction with aspirin versus anticoagulation as well as discussed differences in bleeding risks. He continues to refuse anticoagulation. He is agreeable to stay on aspirin 81 mg daily. He remains hemodynamically stable. He has no cardiac complaints at this time. Reviewed/Discussed With: multidisciplinary team Objective: Vital Signs (8 Hrs) Temp Pulse Resp BP Pulse Ox 10/12/17 15:07 36.7 C 86 20 142/94 H 10/12/17 13:35 36.9 C 92 14 149/89 H 93 10/12/17 12:00 36.8 C 95 20 133/60 H 97 Intake/Output (24 Hrs) 10/11/17 10/12/17 10/13/17 05:59 05:59 05:59 Intake Total 2820 2136 1100 Output Total 2425 3040 120 Balance 395 -904 980 Intake: Oral (ml) 1700 1500 1100 IV Intake (ml) 1120 636 Output: Urine (ml) 2100 2935 100 Colostomy 100 Urinal 2100 2935 Liquid Stool (ml) 0 Colostomy 0 QUINN Drain Output (ml) 325 105 20 Right Abdomen Dylon 325 105 20 [place] Other: Number of Voids Toilet 1 Urinal 2 Result Diagrams: 10/12/17 10:10 10/12/17 10:10 - Physical Exam Constitutional: WDWN Ears, Nose, Mouth, Throat: moist mucous membranes Cardiovascular: no murmurs, no rubs, no gallops, irregularly irregular Peripheral Pulses: 2+: carotid (R), carotid (L) Respiratory: clear to auscultate bilat Neurologic: AAOx3, CN II-XII grossly intact Psychiatric: cooperative, interactive ICD10 Worksheet Patient Problems: Problems Problem Status Onset A-fib Acute Hypoxemia Acute Perforated bowel Acute CHF (congestive heart failure) Acute
[2017-10-13] MEDS: PIPERACILLIN/TAZO 4.5 GM/DEX 100 ML IV SCH ×4 (01:18→18:06)
[2017-10-13] MEDS: HEPARIN 5,000 UNIT/0.5 ML INJ SC SCH ×2 (06:33→18:07)
[2017-10-13] MEDS ORDERED: POLYETHYLENE GLYCOL 3350 17 GM PKT PO PRN (06:52)
[2017-10-13] MEDS ORDERED: LACTULOSE 20 GM/30 ML UDCUP PO PRN (06:52)
[2017-10-13] MEDS ORDERED: BISACODYL 10 MG SUPP PR PRN (06:52)
[2017-10-13] MEDS ORDERED: MAGNESIUM HYDROXIDE 30 ML UDCUP PO PRN (06:52)
--- NOTE | 2017-10-13 06:56 | SOAPPROG ---
SOAP Progress Note Assessment/Plan: Assessment:POD #4 s/p sigmoid colectomy/Matteo's procedure for perforated sigmoid/fecal peritonitis cultures + Pseudomonas, E coli, enterococci Day #4 Zosyn symptoms of urinary retention-improved Plan: continue Zosyn/check sens./Abx at DC per ID A-fib continue telemetry monitoring/Heparin/Dilt Cardiology, Crit Care/Hospitalist care appreciated discussed importance of anticoagulation and impact of CVA on quality of life 10/11/17 07:45 10/12/17 09:00 10/12/17 09:01 10/13/17 06:53 Subjective: awake/resting comfortably Objective: Vital Signs Temp Pulse Resp BP Pulse Ox 36.7 C 90 18 129/83 H 94 10/13/17 04:00 10/13/17 04:00 10/13/17 04:00 10/13/17 04:00 10/13/17 04:00 Microbiology 10/09/17 17:28 Gram Stain - Final Peritoneal Fluid - Eswab Laboratory Results 10/13/17 04:09 10/13/17 04:09 10/12/17 10/13/17 10/14/17 05:59 05:59 05:59 Intake Total 2136 2000 100 Output Total 3040 135 Balance -904 1865 100 PT 13.8 SEC (12.0-15.0) 10/09/17 11:30 INR 1.04 (0.83-1.16) 10/09/17 11:30 - Pending Discharge Pending Discharge Within 24 Hours: No Physical Exam - Physical Exam General Appearance: alert, no apparent distress Respiratory: lungs clear, decreased breath sounds Cardiac/Chest: irregularly irregular Abdomen: soft, distended, other (incision o.k./stoma viable/mild distention/QUINN removed today) Male Genitalia: deferred Rectal: deferred Skin: warm/dry Neuro/Psych: alert, normal mood/affect, oriented x 3 ICD10 Worksheet Patient Problems: Problems Problem Status Onset A-fib Acute Hypoxemia Acute Perforated bowel Acute CHF (congestive heart failure) Acute
[2017-10-13] MEDS: FAMOTIDINE 20 MG TAB PO SCH ×2 (08:45→20:14)
[2017-10-13] MEDS: TAMSULOSIN HCL 0.4 MG CAP PO SCH (08:45)
[2017-10-13] MEDS: SENNOSIDES/DOCUSATE SODIUM TAB PO SCH ×2 (08:45→20:16)
[2017-10-13] MEDS: DILTIAZEM SR 90 MG CAP PO SCH ×2 (08:45→20:14)
--- NOTE | 2017-10-13 10:19 | PCMIDPN ---
Assessment/Plan: Assessment: Perforation of the sigmoid colon with reyes peritonitis. Cultures from washout and sigmoid colectomy show E coli, Pseudomonas and enterococcus. Sensitivities to these isolate show lopes sensitivity. We will be able to use oral Levaquin to cover the bacterial aspects of what is culture. Flagyl should be included in that oral regimen given reyes swelling. Would also recommend addition of oral fluconazole 200 mg daily to empirically cover fungal etiology of contamination. Plan: 1. Continue IV Zosyn for now. Once cleared for discharge can switch over to oral Levaquin and Flagyl. 2. Start oral fluconazole 200 mg daily. Would continue this for a 10 day course. 10/13/17 10:16 Subjective: Patient is anxious to switch rooms due to poor lighting in his initial room. He is walking around and is quite alert and engaged. Does not mention any complaint of abdominal pain. Denies fevers or chills. Denies rash. Objective: Zosyn # 2 Vital Signs Temp Pulse Resp BP Pulse Ox 37.0 C 110 H 20 149/90 H 91 L 10/13/17 07:16 10/13/17 08:45 10/13/17 07:16 10/13/17 07:16 10/13/17 07:16 Microbiology 10/09/17 17:28 Gram Stain - Final Peritoneal Fluid - Eswab Laboratory Results 10/13/17 04:09 10/13/17 04:09 10/12/17 10/13/17 10/14/17 05:59 05:59 05:59 Intake Total 2136 2000 100 Output Total 3040 135 Balance -904 1865 100 - Physical Exam General Appearance: WD/WN, alert, no apparent distress, non-toxic Respiratory: lungs clear, normal breath sounds, No respiratory distress Cardiac/Chest: regular rate, rhythm, No tachycardia Extremities: non-tender, normal inspection Abdomen: soft, other (Ostomy in place.), No distended Skin: normal color, warm/dry, No rash Neuro/Psych: alert, normal mood/affect, oriented x 3 ICD10 Worksheet Patient Problems: Problems Problem Status Onset A-fib Acute Hypoxemia Acute Perforated bowel Acute CHF (congestive heart failure) Acute
[2017-10-13] MEDS: FLUCONAZOLE/NaCl 100 ML IV SCH (10:46)
--- NOTE | 2017-10-13 12:58 | PDCARPN ---
Cardiology Progress Note Assessment/Plan: Assessment: 1. Chronic atrial fibrillation 2. Ileal perforation with fecal peritonitis Plan: -rate control strategy: Diltiazem 90 mg p.o. B.i.d. -patient is scheduled to be seen at [facility] next week. -will sign off. Please call with questions or concerns. 10/12/17 18:50 10/13/17 12:57 Subjective: Mr. Thorpe is feeling well this morning. No new complaints. He remains in rate controlled atrial fibrillation. Blood pressure is stable. Tolerating diltiazem 90 mg p.o. B.i.d.. Objective: Vital Signs (8 Hrs) Temp Pulse Resp BP Pulse Ox 10/13/17 11:22 36.7 C 90 20 142/93 H 94 10/13/17 08:45 110 H 10/13/17 07:16 37.0 C 93 20 149/90 H 91 L Intake/Output (24 Hrs) 10/12/17 10/13/17 10/14/17 05:59 05:59 05:59 Intake Total 2136 2000 100 Output Total 3040 135 Balance -904 1865 100 Intake: Oral (ml) 1500 1800 IV Intake (ml) 636 IV Infused (ml) 200 100 Piperacillin/Tazo 4.5 gm/ 200 100 Dex 100 ml @ 200 mls/hr IV Q6 [facility] Rx#:[id number] Output: Urine (ml) 2935 100 Colostomy 100 Urinal 2935 Liquid Stool (ml) 0 Colostomy 0 QUINN Drain Output (ml) 105 35 Right Abdomen Dylon 105 35 [place] Other: Number of Voids Colostomy 0 Toilet 1 1 Urinal 2 Number of Stools Colostomy 1 Result Diagrams: 10/13/17 04:09 10/13/17 04:09 - Physical Exam Cardiovascular: no murmurs, no rubs, no gallops, irregularly irregular Respiratory: clear to auscultate bilat Neurologic: AAOx3, CN II-XII grossly intact Psychiatric: cooperative, interactive ICD10 Worksheet Patient Problems: Problems Problem Status Onset A-fib Acute Hypoxemia Acute Perforated bowel Acute CHF (congestive heart failure) Acute
--- NOTE | 2017-10-13 15:29 | ASMTCMCOM ---
CM Note CM Note Notes: Spoke with pt and pts jeetr Cookie in the room, also spoke with MD. Pt amenable to plan for returning home with [facility] RN to help with new colostomy care. Pt will be on oral antibiotics upon d/c. Anticipated d/c in a day or two. No further CM needs noted. CM to follow. D/C plan: Home with [facility] Date Signed: 10/13/2017 03:28 PM Electronically Signed By:Tete Nesbitt
--- NOTE | 2017-10-13 17:50 | HOSPPROG ---
Hospitalist Progress Note Assessment/Plan: Subjective Follow-up on perforated sigmoid colon status post sigmoidectomy with end colostomy. No acute events overnight. He still having some abdominal pain but seems to be well controlled. Objective Vital signs as detailed below Exam General-awake alert conversant no acute distress Heart-regular rate and rhythm no murmurs Lungs-Clear to auscultation with normal respiratory effort Abdomen-nondistended nontender with palpation on the right side of the abdomen colostomy bag with small amounts of brown stool -no Zhao catheter in place Extremities-no significant pitting edema or calf pain with palpation Skin-no concerning skin rashes noted Labs as detailed below Assessment and plan Perforated sigmoid colon-patient is status post laparoscopic sigmoidectomy with end colostomy. Pain appears well controlled he appears to be progressing after his surgery. Peritonitis-clinically seems to be improving. Continue with current Zosyn. Susceptibilities appear lopes susceptible. Recommendations regarding the transition to oral antibiotics at time of discharge noted. Acute hypoxic respiratory failure-this may be resolved as on room air today. Continue to monitor closely. Leukocytosis-resolved. A blood cell count has normalized with current antibiotic therapy. Atrial fibrillation-patient did have a rapid ventricular response earlier in the hospital course and was on IV diltiazem for a brief time. His rates are now well controlled with oral diltiazem. Will plan on adding aspirin in the coming days if continued clinical stability. No anticoagulation at this time. DVT prophylaxis-heparin. Disposition-will see how he does the coming days with PT and OT and determine safe place for discharge. Objective: Vital Signs Temp Pulse Resp BP Pulse Ox 36.7 C 82 20 145/86 H 95 10/13/17 15:47 10/13/17 15:47 10/13/17 15:47 10/13/17 15:47 10/13/17 15:47 Microbiology 10/09/17 17:28 Gram Stain - Final Peritoneal Fluid - Eswab Laboratory Results 10/13/17 04:09 10/13/17 04:09 10/12/17 10/13/17 10/14/17 05:59 05:59 05:59 Intake Total 2136 2000 600 Output Total 3040 135 Balance -904 1865 600 PT 13.8 SEC (12.0-15.0) 10/09/17 11:30 INR 1.04 (0.83-1.16) 10/09/17 11:30 ICD10 Worksheet Patient Problems: Problems Problem Status Onset A-fib Acute Hypoxemia Acute Perforated bowel Acute CHF (congestive heart failure) Acute
[2017-10-13] MEDS: LORazepam 1 MG TAB PO PRN (20:14)
[2017-10-13] MEDS ORDERED: TEMAZEPAM 15 MG CAP PO PRN (20:24)
[2017-10-13] MEDS ORDERED: NS 500 ML IV ONE (23:44)
[2017-10-13] MEDS ORDERED: DILTIAZEM 25 MG/5 ML VIAL IVP ONE (23:45)
[2017-10-14] MEDS: PIPERACILLIN/TAZO 4.5 GM/DEX 100 ML IV SCH ×3 (00:20→11:22)
[2017-10-14] MEDS: HEPARIN 5,000 UNIT/0.5 ML INJ SC SCH ×2 (05:23→18:17)
[2017-10-14] MEDS: DILTIAZEM SR 90 MG CAP PO SCH ×2 (08:47→20:32)
[2017-10-14] MEDS: FAMOTIDINE 20 MG TAB PO SCH ×2 (08:47→20:33)
[2017-10-14] MEDS: TAMSULOSIN HCL 0.4 MG CAP PO SCH (08:47)
[2017-10-14] MEDS: SENNOSIDES/DOCUSATE SODIUM TAB PO SCH ×2 (08:48→20:33)
[2017-10-14] MEDS: FLUCONAZOLE/NaCl 100 ML IV SCH (09:57)
--- NOTE | 2017-10-14 15:18 | SOAPPROG ---
SOAP Progress Note Assessment/Plan: Assessment:POD #4 s/p sigmoid colectomy/Matteo's procedure for perforated sigmoid/fecal peritonitis cultures + Pseudomonas, E coli, enterococci Day #5 Zosyn Plan: continue Zosyn/check sens./Abx at DC per ID A-fib continue telemetry monitoring/Heparin/Dilt Cardiology, Crit Care/Hospitalist care appreciated Patient is ready for discharge from a surgical viewpoint/[facility] for colostomy care and assistance 10/11/17 07:45 10/12/17 09:00 10/12/17 09:01 10/13/17 06:53 10/14/17 15:16 Subjective: awake and alert/reports palpitations and rapid heart rate Objective: Vital Signs Temp Pulse Resp BP Pulse Ox 37.6 C 93 17 142/87 H 97 10/14/17 12:00 10/14/17 12:00 10/14/17 12:00 10/14/17 12:00 10/14/17 12:00 Microbiology 10/09/17 17:28 Gram Stain - Final Peritoneal Fluid - Eswab Laboratory Results 10/14/17 04:46 10/14/17 04:46 10/13/17 10/14/17 10/15/17 05:59 05:59 05:59 Intake Total 2000 1000 830 Output Total 135 250 Balance 1865 750 830 PT 13.8 SEC (12.0-15.0) 10/09/17 11:30 INR 1.04 (0.83-1.16) 10/09/17 11:30 Physical Exam - Physical Exam General Appearance: no apparent distress Cardiac/Chest: irregularly irregular Abdomen: normal bowel sounds, soft, distended, other Male Genitalia: deferred Rectal: deferred Back: Normal inspection Skin: warm/dry Extremities: non-tender Neuro/Psych: normal mood/affect, oriented x 3 ICD10 Worksheet Patient Problems: Problems Problem Status Onset A-fib Acute Hypoxemia Acute Perforated bowel Acute CHF (congestive heart failure) Acute
--- NOTE | 2017-10-14 15:33 | PDIAF ---
- Diagnosis Code Status: Full Code - Medication Management Discharge Medications: Medications to Continue on Transfer Multivitamins [Multivitamin (*)] 1 each PO DAILY 10/09/17 [Last Taken Unknown] Temazepam [Restoril 15 MG (*)] 15 mg PO HSPRN PRN 10/09/17 [Last Taken Unknown] Diltiazem Sr [Cardizem Sr] 90 mg PO BID #60 cap 10/14/17 [Last Taken Unknown] Fluconazole [Diflucan (*)] 200 mg PO DAILY #8 tab 10/14/17 [Last Taken Unknown] Hydrocodone/APAP 5/325 [[place] 5/325 (*)] 1 - 2 tab PO Q4HRS PRN #20 tab [Last Taken Unknown] Polyethylene Glycol 3350 [Miralax 17 gm (*)] 17 gm PO DAILY PRN pkt 10/14/17 [ Last Taken Unknown] Sennosides/Docusate Sodium [Senokot-S] 1 - 2 tab PO BID tab 10/14/17 [Last Taken Unknown] levOFLOXACIN [levAQUIN (*)] 750 mg PO DAILY AT 10AM #9 tab 10/14/17 [Last Taken Unknown] metroNIDAZOLE [Flagyl 500 mg (*)] 500 mg PO Q8HRS #27 tab 10/14/17 [Last Taken Unknown] Discharge Medications: Refer to the Discharge Home Medication list for PRN reason. - Orders Services needed: Home Care, Registered Nurse Home Care Face to Face: I certify that this patient was under my care and that I had the required [id number] encounter meeting the encounter requirements on the discharge day. My findings support the fact that the patient is homebound as defined in Home Care Face to Face Continued: CMS Chapter 7 Medicare Benefits Manual 30.1.1 , The condition of the patient is such that there exists a normal inability to leave home and consequently, leaving home would require a considerable and taxing effort. Diet Recommendation: no restrictions on diet Diet Texture: Regular Texture Diet Sutures/[place] Site: abdominal/Patient to call Dr. Kendall' office for outpatient follow up for staple removal [phone] Date to Remove Sutures/[place]: 10/22/17 Additional Instructions: No lifting over 20 pounds x [address] Kendall office for staple removal [phone] Ostomy discharge information: When you go home you will be receiving samples from one or more companies. We understand that at first you may feel overwhelmed by all the choices. The ostomy nurses recommend that you continue with the appliance you were discharged with when you left the hospital for a month or two to adjust to the appliance. If however you have problems with leaking or itching under your faceplate/wafer, you may want to try some different samples.~ After you have adjusted to your stoma and feel ready, then you may look at the features of the new appliances and see if there is one that you like the look/feel/performance of better. There are 3 main ostomy supply companies out there: [employer], [employer] and [employer] all with varying features and options. If you have any leaking or pouching issues, or just need some questions answered , we recommend a consultation with our outpatient ostomy nurses. You can reach them at [phone] [facility]. Please note that they are often scheduled several weeks out.~ - Follow Up Care Current Providers and Referrals: Francesco Yang MD [Primary Care Provider] - As per Instructions Charles Kendall MD [Medical Doctor] - Chris Gomez MD [Medical Doctor] -
--- NOTE | 2017-10-14 17:19 | HOSPPROG ---
Hospitalist Progress Note Assessment/Plan: Subjective Follow-up on perforated sigmoid colon status post sigmoidectomy with end colostomy. Overnight patient had reportedly an episode of delirium got claustrophobic and was wanting to leave the hospital. Fortunately he was directable and was able to return to sleep. Our tentative plan was for discharge today and I did review the case with Dr. Marti as well as Dr. Kendall. Unfortunately however it was the impression at the end of the day that he was still having difficulty with managing his ostomy. I did review his case with case management and they have established home health for him. However at this time it is felt that he would benefit by further ostomy teaching before discharging from the hospital. Objective Vital signs as detailed below Exam General-awake alert conversant no acute distress Heart-regular rate and rhythm no murmurs Lungs-Clear to auscultation with normal respiratory effort Abdomen-nondistended nontender with palpation on the right side of the abdomen colostomy bag with small amounts of brown stool -no Zhao catheter in place Extremities-no significant pitting edema or calf pain with palpation Skin-no concerning skin rashes noted Labs as detailed below Assessment and plan Perforated sigmoid colon-patient is status post laparoscopic sigmoidectomy with end colostomy. Pain appears well controlled he appears to be progressing after his surgery. Once we are confident he can manage his ostomy then he can be discharged home. He does have home health in place. I did write discharge orders today but have canceled them now. I did electronically send his antibiotic prescriptions as well as as needed hydrocodone as well as diltiazem to his listed pharmacy. Peritonitis-clinically seems to be improving. Susceptibilities appear lopes susceptible. Recommendations regarding the transition to oral antibiotics at time of discharge noted. As above oral antibiotics have already been sent to his pharmacy. Atrial fibrillation-patient did have a rapid ventricular response earlier in the hospital course and was on IV diltiazem for a brief time. His rates are now well controlled with oral diltiazem. Will plan on adding aspirin in the coming days if continued clinical stability. No anticoagulation at this time. A followup visit with Dr. Gomez has been recommended. He did consult on his case during this hospitalization. DVT prophylaxis-heparin. Disposition-patient is ready for discharge once he is able to manage his ostomy. Objective: Vital Signs Temp Pulse Resp BP Pulse Ox 36.5 C 98 16 154/94 H 91 L 10/14/17 16:00 10/14/17 16:00 10/14/17 16:00 10/14/17 16:00 10/14/17 16:00 Microbiology 10/09/17 17:28 Gram Stain - Final Peritoneal Fluid - Eswab Laboratory Results 10/14/17 04:46 10/14/17 04:46 10/13/17 10/14/17 10/15/17 05:59 05:59 05:59 Intake Total 1999 1000 830 Output Total 135 250 Balance 1865 750 830 PT 13.8 SEC (12.0-15.0) 10/09/17 11:30 INR 1.04 (0.83-1.16) 10/09/17 11:30 ICD10 Worksheet Patient Problems: Problems Problem Status Onset A-fib Acute Hypoxemia Acute Perforated bowel Acute CHF (congestive heart failure) Acute
--- NOTE | 2017-10-14 17:22 | ASMTCMCOM ---
CM Note CM Note Notes: Attempted late afternoon discharge and ostomy teaching, but pt unable to become proficient with ostomy care due to confusion. WC RN to attempt teaching again tomorrow with possible discharge with [facility] RN support. Daughter and son who live in pt's neighborhood will need to be present for ostomy teaching to help pt become proficient at home. D/C Plan: Home with [facility] Date Signed: 10/14/2017 05:22 PM Electronically Signed By:Tete Nesbitt
--- NOTE | 2017-10-14 18:37 | WOCRNPDOC ---
LISSA Advanced Assessment Note - Colostomy Assessment, Advanced Left Lower Abdomen Colostomy Stoma Colostomy Appliance Intact: Yes Colostomy Appliance Currently in Use: One Piece Flat, 2 1/4, Cut to Fit Stoma Color: [place] Stoma Turgor: Moist, Shiny Stoma Shape: Round Stoma Height: Protruding Mucocutaneus Junction: Intact Colostomy Effluent: Fecal, Pasty Colostomy Size - Head-to-Toe Length X Width X Depth (cm): 40mm Colostomy Details: End Peristomal Skin: Intact, Erythematic (mild hamida stomal erythema from previous pouch being cut slightly too large) Colostomy Comment/Treatment Details: Stoma healthy with no concerns. Patient visited in the am to review the written pouch change step by step instructions and information that was discussed with him on saturday. Patient had no memory of the hour and a half visit that grapple skidder operator spent with him on saturday where we had discussed supplies, and learned how to empty and care for pouch. All teaching had to be redone. Discussed with Tete manager of case and the decision was made to have patient's son and daughter present to help learn the pouch change. In the afternoon the grapple skidder operator re-initiated day 1 and 2 teaching with all supporting teaching materials. Lamar YORK was asked to help in the room for support as it was extraordinarily difficult for the patient to focus. Over 2 hours were spent in the room to demonstrate pouch emptying and one pouch change. The patient became quite agitated when grapple skidder operator dicussed the importance of being able to change the pouch and demonstrate the change before he went home, as he really wanted to discharge today. One piece coloplast [place] cut to fit 2 1/4 pouch was chosen and a change was demonstrated. Patient demonstrated back how to empty the pouch. All questions answered about pouch change frequency, deoderant use, pouch emptying, cutting a template, measuring the stoma with the stoma guide weekly, getting supplies ready to change the pouch before initiating the change every 4-5 days. Patient consented to coloplast starter program and this is initated. Supply sheet for [place] initated but as case management has left for the day they will ask for Dr Kendall signature on it tomorrow. timber buyer is quite hesitant that this patient will be able to manage his ostomy pouch independently at this time. [facility] broch[facility] given for outpatient grapple skidder operator support.
[2017-10-14] MEDS: metroNIDAZOLE 500 MG TAB PO SCH (20:32)
[2017-10-15] MEDS: HYDROCODONE/APAP 5/325 TAB PO PRN (01:04)
--- NOTE | 2017-10-15 09:13 | SOAPPROG ---
SOAP Progress Note Assessment/Plan: Assessment:POD #5 s/p sigmoid colectomy/Matteo's procedure for perforated sigmoid/fecal peritonitis cultures + Pseudomonas, E coli, enterococci currently on Levaquin/Flagyl/ Diflucan Hypertension A-fib w/ RVR Plan: continue po Flagyl/Levaquin/Diflucan per ID management of Hypertension/Afib/tachycardia per Cardiology-Hospitalist Patient is ready for discharge from a surgical viewpoint/[facility] for colostomy care and assistance 10/11/17 07:45 10/12/17 09:00 10/12/17 09:01 10/13/17 06:53 10/14/17 15:16 10/15/17 09:10 Subjective: resting comfortably/mild nausea with po Flagyl Objective: Vital Signs Temp Pulse Resp BP Pulse Ox 36.6 C 99 18 146/101 H 98 10/15/17 08:00 10/15/17 08:00 10/15/17 08:00 10/15/17 08:00 10/15/17 08:00 Microbiology 10/09/17 17:28 Gram Stain - Final Peritoneal Fluid - Eswab Laboratory Results 10/15/17 04:47 10/14/17 04:46 10/14/17 10/15/17 10/16/17 05:59 05:59 05:59 Intake Total 1000 830 Output Total 250 Balance 750 830 PT 13.8 SEC (12.0-15.0) 10/09/17 11:30 INR 1.04 (0.83-1.16) 10/09/17 11:30 - Pending Discharge Pending Discharge Within 24 Hours: Yes Pending Discharge Date: 10/15/17 Pending Discharge Time: 14:00 Physical Exam - Physical Exam General Appearance: alert, no apparent distress Cardiac/Chest: tachycardia, irregularly irregular Abdomen: normal bowel sounds, soft, other (incisions healing well, no sign of infection) Male Genitalia: deferred Rectal: deferred Skin: warm/dry Extremities: non-tender Neuro/Psych: alert, normal mood/affect, oriented x 3 ICD10 Worksheet Patient Problems: Problems Problem Status Onset A-fib Acute Hypoxemia Acute Perforated bowel Acute CHF (congestive heart failure) Acute
[2017-10-15] MEDS: TAMSULOSIN HCL 0.4 MG CAP PO SCH (09:15)
[2017-10-15] MEDS: SENNOSIDES/DOCUSATE SODIUM TAB PO SCH (09:16)
[2017-10-15] MEDS: metroNIDAZOLE 500 MG TAB PO SCH (09:16)
[2017-10-15] MEDS: DILTIAZEM SR 90 MG CAP PO SCH (09:16)
[2017-10-15] MEDS: HEPARIN 5,000 UNIT/0.5 ML INJ SC SCH (09:16)
[2017-10-15] MEDS: FAMOTIDINE 20 MG TAB PO SCH (09:16)
[2017-10-15] MEDS ORDERED: FLUCONAZOLE 100 MG TAB PO SCH (09:45)
[2017-10-15] MEDS: FLUCONAZOLE/NaCl 100 ML IV SCH (09:47)
--- NOTE | 2017-10-15 11:09 | WOCRNPDOC ---
LISSA Advanced Assessment Note - Colostomy Assessment, Advanced Left Lower Abdomen Colostomy Stoma Colostomy Appliance Intact: Yes Colostomy Appliance Currently in Use: One Piece Flat, 2 1/4, Cut to Fit Stoma Color: Red Stoma Turgor: Moist Stoma Shape: Round Stoma Height: Protruding Mucocutaneus Junction: Intact Colostomy Effluent: Fecal, Pasty Colostomy Size - Head-to-Toe Length X Width X Depth (cm): [id number] Colostomy Details: Colectomy, End Peristomal Skin: Intact Colostomy Comment/Treatment Details: Day 3 ostomy teach. Patient verbalized how to do an appliance change step by step. Patient and adhesive bandage making operator then went into the bathroom to perform an appliance change in front of the bathroom mirror. Patient was able to demonstrate emptying the pouch. Patient removed prior appliance, cleansed skin with a damp wash cloth, measured stoma, and cut new appliance. Patient placed deodorizer into pouch and applied appliance to clean, dry skin. All questions were answered. Patient has 3 more Coloplast 1-piece flat cut to fit appliances in his room to take home with him. Order form given to CM for MD signature. Thea YORK aware of patient's eagerness to go home. Patient feels like he knows what to do, has the number for outpatient wound healing clinic, and was able to identify the step by step instructions of what to do, including how often to empty the pouch. manager file will round again tomorrow if patient is still admitted.
[2017-10-15 11:27] VITALS: BP 142/86
--- NOTE | 2017-10-15 11:28 | PDIAF ---
- Diagnosis Diagnosis: perforated diverticulitis Code Status: Full Code - Medication Management Discharge Medications: Medications to Continue on Transfer Multivitamins [Multivitamin (*)] 1 each PO DAILY 10/09/17 [Last Taken Unknown] Temazepam [Restoril 15 MG (*)] 15 mg PO HSPRN PRN 10/09/17 [Last Taken Unknown] Diltiazem Sr [Cardizem Sr] 90 mg PO BID #60 cap 10/14/17 [Last Taken Unknown] Hydrocodone/APAP 5/325 [[place] 5/325 (*)] 1 - 2 tab PO Q4HRS PRN #20 tab [Last Taken Unknown] Polyethylene Glycol 3350 [Miralax 17 gm (*)] 17 gm PO DAILY PRN pkt 10/14/17 [ Last Taken Unknown] Sennosides/Docusate Sodium [Senokot-S] 1 - 2 tab PO BID tab 10/14/17 [Last Taken Unknown] levOFLOXACIN [levAQUIN (*)] 750 mg PO DAILY AT 10AM #9 tab 10/14/17 [Last Taken Unknown] metroNIDAZOLE [Flagyl 500 mg (*)] 500 mg PO Q8HRS #27 tab 10/14/17 [Last Taken Unknown] Aspirin [Aspirin 81mg (*)] 81 mg PO DAILY #30 tab 10/15/17 [Last Taken Unknown] Fluconazole [Diflucan] 200 mg PO DAILY #9 tablet 10/15/17 [Last Taken Unknown] Discharge Medications: Refer to the Discharge Home Medication list for PRN reason. - Orders Services needed: Home Care, Registered Nurse, Physical Therapy, Occupational Therapy Home Care Face to Face: I certify that this patient was under my care and that I had the required [id number] encounter meeting the encounter requirements on the discharge day. My findings support the fact that the patient is homebound as defined in Home Care Face to Face Continued: CMS Chapter 7 Medicare Benefits Manual 30.1.1 , The condition of the patient is such that there exists a normal inability to leave home and consequently, leaving home would require a considerable and taxing effort. Diet Recommendation: no restrictions on diet Diet Texture: Regular Texture Diet Sutures/[place] Site: abdominal/Patient to call Dr. Kendall' office for outpatient follow up for staple removal [phone] Date to Remove Sutures/[place]: 10/22/17 Additional Instructions: No lifting over 20 pounds x [address] Kendall office for staple removal [phone] Ostomy discharge information: When you go home you will be receiving samples from one or more companies. We understand that at first you may feel overwhelmed by all the choices. The ostomy nurses recommend that you continue with the appliance you were discharged with when you left the hospital for a month or two to adjust to the appliance. If however you have problems with leaking or itching under your faceplate/wafer, you may want to try some different samples.~ After you have adjusted to your stoma and feel ready, then you may look at the features of the new appliances and see if there is one that you like the look/feel/performance of better. There are 3 main ostomy supply companies out there: [place], [employer] and [employer] all with varying features and options. If you have any leaking or pouching issues, or just need some questions answered , we recommend a consultation with our outpatient ostomy nurses. You can reach them at [phone] at [facility]. Please note that they are often scheduled several weeks out.~ - Follow Up Care Current Providers and Referrals: Francesco Yang MD [Primary Care Provider] - As per Instructions Charles Kendall MD [Medical Doctor] - Chris Gomez MD [Medical Doctor] -
--- NOTE | 2017-10-15 12:28 | ASMTDCNOTE ---
Case Management Discharge Discharge Order Complete? Answers: Yes Patient to Obtain Answers: Independently Medications Transportation Arranged Answers: Family/Friends Faxed Final Orders Answers: Yes Family Notified Answers: Yes Discharge Comments Notes: Patient discharged home with [facility] PT/OT/RN; orders faxed. Ostomy supplies ordered from [facility]; we will provide initial supply. Patient's daughter will transport home. Date Signed: 10/15/2017 12:27 PM Electronically Signed By:Radha Brunson RN
--- NOTE | 2017-10-15 16:13 | ASDISCHSUM ---
Discharge Information Plan Status:Home with Home Health Medically Cleared to Leave: Discharge Date:10/15/2017 01:00 PM CM D/C Disposition: ADT D/C Disposition:Home Health Service Projected Discharge Date:10/14/2017 05:30 PM Transportation at D/C: Discharge Delay Reason: Follow-Up Date:10/14/2017 05:30 PM Discharge Slot: Final Diagnosis: Placement Information Referral Type:*Home Health Care Services Referral ID:[id number] Provider Name:[facility] ([facility]) [address] [place] [address] Address 2: City:[place] Selection Factors: State:[place] Patient Contact Information Contact Name:GILBERTO Relationship:Daughter Address: Work Phone: City: [facility] Phone: [facility] Code: Email: Financial Information Financial Class:Medicare Primary Plan Desc:MEDICARE INPATIENT Primary Plan Number:[id number] Secondary Plan Desc:[facility] Secondary Plan Number:[id number] Assessment Information [facility] Initial CM Assessment Living Arrangements What is your living Answers: Alone arrangement? Who do you live with? Type Of Residence What kind of residence do Answers: Apartment you live in? Discharge Plan Comments Coordination Status Comments Notes: Patient is a 81yo single male who was admitted for a perforated ileum and perioperative evaluation. Patient also has atrial fibrillation with rapid ventricular response indicative of his severe illness. Patient has sepsis and respiratory failure likely due to intraabdominal infection. Wound care ordered. No other therapies ordered at this time. D/C needs TBD. CM will follow. Date Signed: 10/10/2017 09:28 AM Electronically Signed By:Erica Marte LCSW [facility] CM Progress Note CM Note CM Note Notes: A family meeting was held today for patient. Please see Sheila Hameed's summary in notes. Patient's states patient is most likely going to want to do outpatient therapy. He has been an active person lifting weights, running and doing yoga. Spoke with Dr. Guzman to get OT/PT evals ordered since they had not been to date. Depending on patient's recovery, outpatient may be appropriate. CM will follow. Date Signed: 10/10/2017 05:14 PM Electronically Signed By:Erica Marte LCSW [facility] CM Progress Note CM Note CM Note Notes: Spoke with pt and pts harriet Gary in the room, also spoke with MD. Pt amenable to plan for returning home with [facility] RN to help with new colostomy care. Pt will be on oral antibiotics upon d/c. Anticipated d/c in a day or two. No further CM needs noted. CM to follow. D/C plan: Home with [facility] Date Signed: 10/13/2017 03:28 PM Electronically Signed By:Tete Nesbitt [facility] CM Progress Note CM Note CM Note Notes: Attempted late afternoon discharge and ostomy teaching, but pt unable to become proficient with ostomy care due to confusion. RN to attempt teaching again tomorrow with possible discharge with [facility] RN support. Daughter and son who live in pt's neighborhood will need to be present for ostomy teaching to help pt become proficient at home. D/C Plan: Home with [facility] Date Signed: 10/14/2017 05:22 PM Electronically Signed By:Tete Nesbitt Case Management Discharge Plan Note Case Management Discharge Discharge Order Complete? Answers: Yes Patient to Obtain Answers: Independently Medications Transportation Arranged Answers: Family/Friends Faxed Final Orders Answers: Yes Family Notified Answers: Yes Discharge Comments Notes: Patient discharged home with [facility] PT/OT/RN; orders faxed. Ostomy supplies ordered from [facility]; we will provide initial supply. Patient's daughter will transport home. Date Signed: 10/15/2017 12:27 PM Electronically Signed By:Radha Brunson RN Intervention Information Intervention Type:*IM-Signed Date of Service:10/13/2017 03:42 PM Patient Type:Inpatient Staff Member:Tete Nesbitt Hours: Discipline:Bag Adjuster Severity: Comment:
--- NOTE | 2017-10-15 19:38 | GDS ---
[f rep st] DISCHARGE SUMMARY DISCHARGE DIAGNOSES: 1. Perforated diverticulitis status post ostomy. 2. Peritonitis. 3. Atrial fibrillation. HISTORY: Laura Thorpe is a 81-year-old male who presented with abdominal pain and was found to have a perforated sigmoid colon. He underwent sigmoidectomy and colostomy. Cultures of peritoneal fluid g rew Pseudomonas, E coli, and Enterococcus. He was seen here by Infectious Disease. He did well from a surgical standpoint regarding his ostomy care and is okay to go home today. [facility] 750 mg p.o. daily. Flagyl mg orally every 8, and fluconazole 200 mg orally daily to complete a 10-day course of treatment. He had some problems with atrial fibrillation during this hospitalization. Has a known history of ch ronic atrial fibrillation. Diltiazem was started at 90 mg orally twice daily with good control. He has a long-standing history of refusing anticoagulation, although he is agreeable to an aspirin. DISCHARGE MEDICATIONS: Please see computer record for full detailed list. New medications: 1. Levaquin 750 mg orally daily for 9 more days. 2. Flagyl 500 mg orally daily every 8 hours for 9 more days. 3. Diflucan 200 mg orally daily for 9 more days. 4. Aspirin 81 mg orally daily. 5. Diltiazem sustained release 90 mg orally twice daily. 6. [place] 1-2 orally every 4 hours as needed. DISCHARGE INSTRUCTIONS: 1. Follow up with Dr. Kendall for staple removal. 2. No lifting over 20 pounds for 4 weeks. 3. Home Health for help with ostomy management. Greater than 30 minutes' time spent arranging this discharge. The patient was seen and examined by elvis smallwood on the day of discharge. /[id number]/MODL
--- NOTE | 2017-10-18 06:45 | CPEKG ---
Test Reason : OPEN Blood Pressure : / mmHG Vent. Rate : 151 BPM Atrial Rate : 157 BPM P-R Int : 116 ms QRS Dur : 100 ms QT Int : 309 ms P-R-T Axes : 078 087 038 degrees QTc Int : 490 ms Atrial fibrillation with rapid V-rate Borderline right axis deviation Left ventricular hypertrophy Confirmed by Jhon Hebert ([id number]) on 10/18/2017 6:45:12 AM Referred By: Confirmed By:Jhon Hebert
== END 2017-10-15 13:00 | disposition home health service (06) | DRG 330 ==
LOC: F2N 19:39 → F3E 10-12 13:30
PROVIDERS: ADMIT Surgery; ATTEND Surgery
PROC: 0D1N4Z4 Bypass Sigmoid Colon to Cutaneous, Percutaneous Endoscopic Approach (ICD-10-PCS; principal; 2017-10-09 16:00)
PROC: 0DBN4ZX Excision of Sigmoid Colon, Percutaneous Endoscopic Approach, Diagnostic (ICD-10-PCS; principal; 2017-10-09 16:00)
DX: K57.20 Diverticulitis of large intestine with perforation and abscess without bleeding (principal); E86.9 Volume depletion, unspecified; I48.2 Chronic atrial fibrillation; B96.5 Pseudomonas (aeruginosa) (mallei) (pseudomallei) as the cause of diseases classified elsewhere; B96.20 Unspecified Escherichia coli [E. coli] as the cause of diseases classified elsewhere; B95.2 Enterococcus as the cause of diseases classified elsewhere; F10.10 Alcohol abuse, uncomplicated; I08.0 Rheumatic disorders of both mitral and aortic valves
CPT/HCPCS: 82435-PO; 82565-PO; 82947-PO; 84132-PO; 84295-PO; 84520-PO; 85014-PO; 96365; 97116-GP; 97161-GP; 97165-GO; 97535-GO; G8978-GP-CK; G8979-GP-CJ; G8980-GP-CI; G8987-GO-CI; G8988-GO-CI; G8989-GO-CI; J1100; J1170; J1335; J1450; J1644; J2060; J2405; J2543; J2704; J3475; Q9967

== ENCOUNTER 2018-01-28 10:45 | Inpatient (IN) | payer OTHER ==
[2018-01-31] MEDS ORDERED: LR 1,000 ML IV SCH (08:30)
[2018-01-31] MEDS ORDERED: ceFAZolin 2 GM/DEXTROSE 100 ML IV ONE (08:30)
[2018-01-31] MEDS ORDERED: LR 1,000 ML IV ONE (08:44)
[2018-01-31] MEDS ORDERED: BUPIVACAINE 0.25% 10 ML SDV ONE (08:50)
[2018-01-31] MEDS ORDERED: POLYMYXIN B SULFATE 500,000 UNIT/10 ML SYR IRR ONE (08:50)
[2018-01-31] MEDS ORDERED: BACITRACIN 50,000 UNITS/10 ML SYR IRR ONE (08:51)
[2018-01-31] MEDS ORDERED: MIDAZOLAM 2 MG/2 ML VIAL IVP ONE (10:28)
--- NOTE | 2018-01-31 10:33 | PDHPUP ---
History & Physical Update H&P update statement: This history and physical update is based on an assessment of the patient which was completed after admission or registration (within 24 hours), but prior to the surgery/procedure. H&P update: no change in patient's condition since H&P completed
--- NOTE | 2018-01-31 10:37 | PDANEPAE ---
ANE History of Present Illness colostomy s/f takedown ANE Past Medical History - Cardiovascular History Hx Hypertension: Yes Hx Arrhythmias: Yes Hx Chest Pain: No Hx Coronary Artery / Peripheral Vascular Disease: No Hx CHF / Valvular Disease: No Hx Palpitations: No Cardiovascular History Comment: afib. hyperlipidemia - Pulmonary History Hx COPD: No Hx Asthma/Reactive Airway Disease: No Hx Recent Upper Respiratory Infection: No Hx Oxygen in Use at Home: No Hx Sleep Apnea: No Sleep Apnea Screening Result - Last Documented: Positive Pulmonary History Comment: nelson triggers - Neurologic History Hx Cerebrovascular Accident: No Hx Seizures: No Hx Dementia: No - Endocrine History Hx Diabetes: No - Renal History Hx Renal Disorders: No - Liver History Hx Hepatic Disorders: No - Neurological & Psychiatric Hx Hx Neurological and Psychiatric Disorders: Yes Neurological / Psychiatric History Comment: anxiety surrounding surgery - Cancer History Hx Cancer: Yes Cancer History Comment: basal cell carcinoma - Congenital Disorder History Hx Congenital Disorders: No - GI History Hx Gastrointestinal Disorders: Yes Gastrointestinal History Comment: IBS. perforated diverticulitis hospitalized 10/09/17-10/15/17. colostomy currently. peritonitis - Other Health History Other Health History: wears glasses - Chronic Pain History Chronic Pain: No - Surgical History Prior Surgeries: 10/09/17 exp lap with sigmoid colectomy and end colostomy with Johs. hand repair after going through window ANE Review of Systems Review of Systems: - Exercise capacity METS (RN): 3 METS ANE Patient History - Allergies Allergies/Adverse Reactions: No Known Allergies Allergy (Verified 01/28/18 11:42) - Home Medications Home medications: home medication list seen and reviewed Home Medications: Temazepam [Restoril 15 MG (*)] 15 mg PO HSPRN PRN 10/09/17 [Last Taken 1 Week Ago ~01/24/18] Testosterone 5 gm TD DAILY PRN 01/23/18 [Last Taken 01/29/18] Diltiazem HCl [Cartia Xt] 120 mg PO DAILY 01/31/18 [Last Taken 01/28/18] - NPO status NPO Status: no food or drink >8 hours NPO Since - Liquids (Date): 01/30/18 NPO Since - Liquids (Time): 22:00 NPO Since - Solids (Date): 01/29/18 NPO Since - Solids (Time): 19:00 - Anes Hx Anes Hx: no prior problems - Smoking Hx Smoking Status: Never smoked Marijuana use: No - Alcohol Use Alcohol Use: None - Family Anes Hx Family Anes Hx: none Family Hx Anesthesia Complications: none ANE Labs/Vital Signs - Labs - CBC WBC: reviewed and okay - Vital Signs Blood Pressure: 129/94 Heart Rate: 99 Respiratory Rate: 18 O2 Sat (%): 98 Height: 167.64 cm Weight: 68.039 kg ANE Physical Exam - Airway Neck exam: FROM Mallampati Score: Class 2 Mouth exam: normal dental/mouth exam - Pulmonary Pulmonary: no respiratory distress - Cardiovascular Cardiovascular: irregularly irregular ANE Anesthesia Plan Anesthesia Plan: general endotracheal anesthesia
[2018-01-31] MEDS ORDERED: MIDAZOLAM 2 MG/2 ML VIAL ONE (10:51)
[2018-01-31] MEDS ORDERED: fentaNYL 100 MCG/2 ML INJ ONE ×2 (11:03→14:27)
[2018-01-31] MEDS ORDERED: DEXAMETHASONE 4 MG/ML VIAL ONE ×2 (11:03)
[2018-01-31] MEDS ORDERED: PROPOFOL/EMULSION 500 MG/50 ML BOTTLE IV ONE (11:03)
[2018-01-31] MEDS ORDERED: ONDANSETRON 4 MG/2 ML VIAL ONE (11:03)
[2018-01-31] MEDS ORDERED: ROCURONIUM 50 MG/5 ML VIAL ONE ×2 (11:03→13:14)
[2018-01-31] MEDS ORDERED: REMIFENTANIL HCL 1 MG VIAL ONE (11:03)
[2018-01-31] MEDS ORDERED: NEOSTIGMINE METHYLSULFATE 5 MG/5 ML SYR ONE (13:57)
[2018-01-31] MEDS ORDERED: GLYCOPYRROLATE 0.2 MG/1 ML VIAL ONE ×2 (13:57)
[2018-01-31] MEDS ORDERED: HYDROmorphONE/DILAUDID 2 MG/ML INJ ONE (14:27)
[2018-01-31] MEDS ORDERED: PROMETHAZINE HCL 25 MG/ML INJ IVP PRN (14:28)
[2018-01-31] MEDS ORDERED: NALOXONE HCL 0.4 MG/ML INJ IVP PRN (14:28)
[2018-01-31] MEDS ORDERED: NS 500 ML IV PRN (14:28)
[2018-01-31] MEDS ORDERED: ACETAMINOPHEN 500 MG TAB PO PRN (14:28)
[2018-01-31] MEDS ORDERED: HYDROCODONE/APAP 5/325 TAB PO PRN (14:28)
[2018-01-31] MEDS ORDERED: METOCLOPRAMIDE 10 MG/2 ML VIAL IVP PRN (14:28)
[2018-01-31] MEDS ORDERED: PHENYLEPHRINE HCL 100 MCG/ML SYR IVP PRN (14:28)
[2018-01-31] MEDS ORDERED: LR 500 ML IV PRN (14:28)
[2018-01-31] MEDS ORDERED: LABETALOL HCL 20 MG/4 ML INJ IVP PRN (14:28)
[2018-01-31] MEDS ORDERED: ALBUTEROL 3 ML DEYVIAL IH PRN (14:28)
[2018-01-31] MEDS ORDERED: ONDANSETRON 4 MG/2 ML VIAL IVP PRN ×2 (14:28→14:39)
[2018-01-31] MEDS ORDERED: oxyCODONE IR 5 MG TAB PO PRN (14:28)
[2018-01-31] MEDS ORDERED: MEPERIDINE 25 MG/0.5 ML AMP IVP PRN (14:28)
[2018-01-31] MEDS ORDERED: DEXAMETHASONE 4 MG/ML VIAL IVP PRN (14:28)
[2018-01-31] MEDS: fentaNYL 100 MCG/2 ML INJ IVP PRN ×2 (14:32→14:46)
--- NOTE | 2018-01-31 14:38 | POSTOPPROG ---
Post Op Note Date of Operation: 01/31/18 Surgeon: Charles Kendall (, FACS) Bricklayer Helper: Agnes Lopez PA-C Anesthesiologist: Eric Bowden MD Anesthesia: GET(General Endotracheal) Pre-op Diagnosis: sigmoid diverticulitis s/p Matteo's procedure, parastomal hernia Procedure: lap partial sigmoid colectomy and coloproctostomy/repair parastomal hernia Findings: distal sigmoid diverticuli without acute inflammation Inf/Abcess present in the surg proc area at time of surgery?: No EBL: 50-100 (50) Specimen(s): distal sigmoid colon/colostomy end/proximal and distal EEA donuts, hernia sac
[2018-01-31] MEDS ORDERED: HYDROmorphONE/DILAUDID 1 MG/ML INJ IVP PRN (14:39)
[2018-01-31] MEDS ORDERED: D5W NS 1,000 ML IV SCH (14:45)
--- NOTE | 2018-01-31 15:53 | SOAPPROG ---
SOAP Progress Note Assessment/Plan: Assessment: Problem list: 1. Paroxysmal atrial fibrillation CHADS Vasc 2 2. Valvular heart disease characterized by mild to moderate mitral regurgitation , moderate aortic regurgitation, ejection fraction 50% with biatrial enlargement 3. Status post abdominal surgery/colostomy reversal 4. Hypertension Impression: Stable cardiovascular status post operatively. He is in atrial fibrillation with a controlled ventricular rate of 90. Blood pressure is normal. Resume diltiazem for rate control and control blood pressure. Will follow him clinically during the operative period. * diltiazem 120 mg CD once daily * ASA as soon as reasonable. 01/31/18 15:47 Subjective: 82-year-old male seen on January [address] Yanez. He was cleared for surgery at that time with a known history of paroxysmal atrial fibrillation. He is on diltiazem 120 mg once a day for rate control. He has had a discussion regarding long-term anticoagulation and in the near term has been on daily aspirin. His last echocardiogram was dated from September. At that time he had an ejection fraction of 50% with concentric left ventricular hypertrophy he had severe biatrial enlargement. He had [id number] mitral regurgitation, trileaflet aortic valve with moderate aortic regurgitation. He is relatively asymptomatic. He does have paroxysms of atrial fibrillation which she detects by his blood pressure monitor. He has not had syncope or near -syncope. He denies palpitations. He has had no angina or shortness of breath. He underwent successful revision of a colostomy today. On my arrival he is free of chest pain, shortness of breath, PND, orthopnea. He has modest abdominal pain. Objective: Vital Signs Temp Pulse Resp BP Pulse Ox 36.2 C 102 H 12 130/79 H 90 L 01/31/18 15:46 01/31/18 15:46 01/31/18 15:46 01/31/18 15:46 01/31/18 15:46 01/30/18 01/31/18 02/01/18 05:59 05:59 05:59 Intake Total 1400 Output Total 175 Balance 1225 Telemetry shows atrial fibrillation with a controlled ventricular rate. Physical Exam - Physical Exam General Appearance: alert, no apparent distress EENT: other (Dry mucous membranes) Neck: supple Respiratory: lungs clear, normal breath sounds Cardiac/Chest: systolic murmur, irregularly irregular, No gallop, No JVD Peripheral Pulses: 1+: carotid (R), carotid (L), femoral (R), femoral (L) Skin: warm/dry, No rash Extremities: No pedal edema, No calf tenderness Neuro/Psych: alert ICD10 Worksheet Patient Problems: Problems Problem Status Onset A-fib Acute CHF (congestive heart failure) Acute Perforated bowel Acute Hypoxemia Acute Past Medical History - Medical/Surgical History Hx Asthma: No Hx Chronic Respiratory Disease: No Hx Cardiac Disease: Yes Hx Diabetes: No Hx Renal Disease: No Hx Alcoholism: No Hx Cirrhosis: No Hx HIV/AIDS: No Hx Splenectomy or Spleen Trauma: No Other PMH: ?afib, sts "irregular HB that Rich told me to just drink more fluids for since I didn't want blood thinners" HTN, NEUROPATHY, DIVERTICULOSIS, HAND SURGERY, TONSILECTOMY, MICROCYTOSIS - Social History Smoking Status: Never smoked Review of Systems - Review of Systems Constitutional: denies: chills, fever EENTM: no symptoms reported Respiratory: no symptoms reported Cardiac: no symptoms reported Gastrointestinal/Abdominal: abdominal pain Genitourinary: no symptoms, other (Zhao catheter in place) Musculoskelatal: no symptoms Skin: no symptoms Neurological: no symptoms Hematologic/Lymphatic: no symptoms reported Immunologic/allergic: no symptoms reported
--- NOTE | 2018-01-31 16:16 | POSTANESTH ---
Post Anesthetic Evaluation Cardiovascular Status: Similar to Pre-Op Cond (chronic a-fib) Respiratory Status: Normal, Stable, Tx Decrease in SpO2 (mild post op hypoxia) Level of Consciousness/Mental Status: Can Participate in Eval, Mildly Sleepy, Arousable Pain Control: Adequate, Prn Tx Ordered Nausea/Vomiting Control: Adequate, Prn Tx Ordered Complications Possibly Related to Anesthesia: None Noted
[2018-01-31] MEDS: PANTOPRAZOLE SODIUM 40 MG VIAL IVP SCH (17:10)
[2018-01-31] MEDS: DILTIAZEM CD 120 MG CAP PO SCH (17:17)
--- NOTE | 2018-01-31 19:10 | SOAPPROG ---
SOAP Progress Note Assessment/Plan: Assessment:1. s/p lap colostomy takedown, partial colectomy, coloproctostomy for diverticular disease 2. A-fib with rapid ventricular response (Cardiology consult noted/appreciated) 3. HTN Plan: Abx prophylaxis 24 hours post op restart ASA clear liquids until ileus resolves 01/31/18 19:08 Subjective: resting comfortably/family at bedside Objective: Vital Signs Temp Pulse Resp BP Pulse Ox 36.1 C 115 H 12 123/98 H 98 01/31/18 18:04 01/31/18 18:04 01/31/18 18:04 01/31/18 18:04 01/31/18 18:04 Laboratory Results 01/31/18 17:13 01/30/18 01/31/18 02/01/18 05:59 05:59 05:59 Intake Total 1850 Output Total 175 Balance 1675 Physical Exam - Physical Exam General Appearance: no apparent distress Abdomen: soft, other (dressings dry) Male Genitalia: other (Zhao cath) Skin: warm/dry Neuro/Psych: alert, normal mood/affect, oriented x 3 ICD10 Worksheet Patient Problems: Problems Problem Status Onset A-fib Acute CHF (congestive heart failure) Acute Hypoxemia Acute Perforated bowel Acute
[2018-01-31] MEDS: ASPIRIN 325 MG TAB PO SCH (20:02)
[2018-01-31] MEDS: ceFAZolin 2 GM/DEXTROSE 100 ML IV SCH (20:03)
[2018-01-31] MEDS: ACETAMINOPHEN 325 MG TAB PO PRN (22:44)
[2018-02-01] MEDS: ceFAZolin 2 GM/DEXTROSE 100 ML IV SCH ×2 (03:01→10:30)
--- NOTE | 2018-02-01 05:32 | GOP ---
DATE OF OPERATION: SURGEON: Charles Kendall MD, FACS RESEARCH HOME ECONOMIST: Tete Lopez PA-C. ANESTHESIA: General endotracheal. ANESTHESIOLOGIST: Eric Bowden MD. PREOPERATIVE DIAGNOSIS: 1. End colostomy, status post emergent Matteo procedure. 2. Diverticulosis, extensive, distal sigmoid colon. 3. Intra-abdominal adhesions. 4. Parastomal hernia. POSTOPERATIVE DIAGNOSIS: 1. End colostomy, status post emergent Matteo procedure. 2. Diverticulosis, extensive, distal sigmoid colon. 3. Intra-abdominal adhesions. 4. Parastomal hernia. PROCEDURE PERFORMED: 1. Laparoscopic partial sigmoid colectomy with primary coloproctostomy, takedown of colostomy. 2. Repair of parastomal hernia. 3. Adhesiolysis. 4. Laparoscopic mobilization of the splenic flexure. FINDINGS: Moderate adhesions between the small bowel and distal sigmoid colon in the pelvis. Moderate-sized parastomal hernia without incarceration. No evidence of acute diverticulitis. ESTIMATED BLOOD LOSS: 50 mL. DESCRIPTION OF PROCEDURE: After informed consent was obtained, the patient was brought to the operating room and placed under general anesthesia. He was positioned in lithotomy, carefully padding all pressure points. Sequential compression devices were placed on his calves, and he had a Zhao catheter placed. The colostomy bag was removed, and the stoma, abdomen, and perineum were prepped and draped in the usual fashion. Before proceeding, a time-out and identification the patient were performed. Rigid proctoscopy was performed and showed mucosal inflammation of the rectum consistent with a diversion colitis, but no active bleeding or polypoid lesions were noted. The scope was withdrawn, and laparoscopy was subsequently performed as follows. The patient had a prior midline incision that extended to above his umbilicus, and the incision was infiltrated with 0.25% Marcaine, incised with a scalpel, and dissection carried out down to the midline. Midline fascia was grasped with Ken clamps and incised, entering the peritoneal cavity under direct visualization. A 12 mm port was established here and a pneumoperitoneum established with CO2 gas to a pressure of 15 mmHg. A 30-degree scope was introduced, and the peritoneal cavity was visualized. There were no adhesions outside of the pelvis and no incarceration of the parastomal hernia. Pelvic adhesions consisted of small bowel loops stuck to the distal sigmoid colon which had been previously divided with a stapler and tagged with Prolene sutures for identification. The appendix was adherent to the rectal stump, and this too was gently mobilized with use of the Harmonic scalpel for adhesiolysis. After the small bowel was mechanically displaced out of the pelvis, the distal sigmoid colon was inspected and noted to contain numerous diverticula with evidence of prior inflammation. I elected to perform a completion sigmoid colectomy as follows. The sigmoid mesentery was dissected with the Harmonic scalpel for hemostasis down to the level of the rectosigmoid junction. Here, the mesentery was then cleared from the bowel antimesenteric border and the bowel divided with 2 firings of the Endo RUEL 45 stapler. The specimen was left in the pelvis for the time being. The splenic flexure was mobilized, taking down the splenocolic ligaments and the left lateral peritoneal attachments to allow tension-free anastomosis. Subsequently, an elliptical incision was made around the colostomy and dissection carried out with cautery through the subcutaneous tissues down to the level of the fascia. The peritoneum was incised and the remainder of the dissection performed circumferentially with cautery at the level of the peritoneum. The proximal colon was gently pulled up through the resultant wound and the end of the colostomy transected sharply. The mesentery to this section of bowel was divided with the Harmonic scalpel for hemostasis. The freshened edge of the proximal sigmoid colon was devoid of diverticula, and a 29 mm EEA stapler was brought onto the field. The anvil was placed into the sigmoid and a pursestring suture used to secure it. It was dropped back into the peritoneal cavity in preparation for anastomosis. The distal sigmoid colon specimen was then removed via the colostomy incision and submitted for permanent section. The posterior portion of the stomal defect was closed with continuous running 2-0 Vicryl suture and a pneumoperitoneum re-established. The patient was placed in extreme Trendelenburg position, and the EEA stapling instrument was passed transanally up to the newly divided rectosigmoid junction. The stapling instrument was deployed posterior to the staple line and laparoscopically attached to the anvil of the instrument. The instrument was then closed, fired, opened, and retrieved from the rectum. The proximal and distal donuts were both intact, and these were submitted for permanent section. A leak test was performed by irrigating the pelvis with saline and insufflating the rectum with the rigid sigmoidoscope, and no air leaks were noted. Upon completion, the anastomosis was intact without undue tension. Hemostasis appeared secure. The pelvis was irrigated and aspirated. The pneumoperitoneum was then evacuated and the remaining ports were removed. A clean closure was then accomplished, changing gowns, gloves, instruments, and redraping the field. The parastomal hernia was repaired with continuous running 0 PDS suture. The wound was copiously irrigated with normal saline and aspirated. Subcutaneous tissues were approximated with 3-0 Vicryl suture. Skin was closed with woodrow. The 2 remaining fascial defects were closed with interrupted 0 Vicryl suture. Subcutaneous tissues of the remaining ports were approximated with 4-0 Monocryl suture in a subcuticular fashion, followed by Dermabond. The patient was extubated and brought to the recovery room in satisfactory condition. COUNTS: Needle, sponge, and instrument counts were correct. COMPLICATIONS: None. /[id number]/MODL MTDD
[2018-02-01 05:35] LABS: PLATELET COUNT 283 10^3/uL (150-400)
[2018-02-01] MEDS: DILTIAZEM CD 120 MG CAP PO SCH (08:48)
[2018-02-01] MEDS: ASPIRIN 325 MG TAB PO SCH (08:48)
[2018-02-01] MEDS: PANTOPRAZOLE SODIUM 40 MG VIAL IVP SCH (08:49)
[2018-02-01] MEDS: ENOXAPARIN 40 MG/0.4 ML SYR SC SCH (08:50)
--- NOTE | 2018-02-01 08:51 | SOAPPROG ---
SOAP Progress Note Assessment/Plan: Assessment:1. s/p lap colostomy takedown, partial colectomy, coloproctostomy for diverticular disease-post op ileus 2. A-fib with rapid ventricular response (Cardiology consult noted/appreciated) 3. HTN 4. post op hypoxemia requiring supplemental O2 Plan: Abx prophylaxis 24 hours post op VTE prophylaxis, continue ASA clear liquids until ileus resolves 01/31/18 19:08 02/01/18 08:49 Subjective: sitting up enjoying his clear liquid breakfast, good pain control Objective: Vital Signs Temp Pulse Resp BP Pulse Ox 36.3 C 94 16 122/79 H 99 02/01/18 07:20 02/01/18 07:20 02/01/18 07:20 02/01/18 07:20 02/01/18 07:20 Laboratory Results 02/01/18 04:34 02/01/18 04:34 01/31/18 02/01/18 02/02/18 05:59 05:59 05:59 Intake Total 2600 Output Total 725 Balance 1875 Physical Exam - Physical Exam General Appearance: alert, no apparent distress Respiratory: lungs clear, normal breath sounds, decreased breath sounds (as bases) Cardiac/Chest: tachycardia, irregularly irregular Abdomen: soft, distended, other (surgical sites uncomplicated) Male Genitalia: normal genitalia, other (Zhao is out) Rectal: deferred Skin: warm/dry Neuro/Psych: alert, normal mood/affect, oriented x 3 ICD10 Worksheet Patient Problems: Problems Problem Status Onset A-fib Acute CHF (congestive heart failure) Acute Hypoxemia Acute Perforated bowel Acute
--- NOTE | 2018-02-01 12:49 | PDMN ---
Medical Necessity Medical necessity: Pt meets INPT criteria per [place] as of 01/31/18 [place] [facility] [place] [facility] (lap partial sigmoid colectomy w primary coloproctostomy, takedown of colostomy - [facility] INPT ONLY surgery).
--- NOTE | 2018-02-01 16:41 | ASMTCMCOM ---
CM Note CM Note Notes: Pt admitted to hospital for a scheduled colostomy takedown. He developed a post op ileus that is resolving, pt lives alone and has been cleared for home by therapies. CM available for any changes. DC Plan: Independent Date Signed: 02/01/2018 04:40 PM Electronically Signed By:Laly Ambriz RN
[2018-02-01] MEDS: ACETAMINOPHEN 325 MG TAB PO PRN (19:42)
[2018-02-02] MEDS ORDERED: PANTOPRAZOLE SODIUM 40 MG TAB PO ONE (09:02)
[2018-02-02] MEDS: DILTIAZEM CD 120 MG CAP PO SCH (09:09)
[2018-02-02] MEDS: ASPIRIN 325 MG TAB PO SCH (09:09)
[2018-02-02] MEDS: ENOXAPARIN 40 MG/0.4 ML SYR SC SCH (09:09)
--- NOTE | 2018-02-02 09:16 | PDDCSUM ---
Discharge Summary Discharge Summary: #[id number] Discharge summary dictated S MD Enoch, FACS
--- NOTE | 2018-02-02 09:43 | GDS ---
DISCHARGE DIAGNOSES: 1. End-colostomy, status post emergent sigmoid colectomy and Matteo procedure September 2017 for perf orated diverticulitis and sepsis. 2. Peristomal hernia. 3. Atrial fibrillation with rapid ventricular response. 4. Hypertension. PROCEDURES PERFORMED: 01/31/2018, laparoscopic distal sigmoid colectomy, takedown of colostomy, prim ranjit coloproctostomy, repair of peristomal hernia, and adhesiolysis. CONSULTATIONS: During this hospital stay, patient was seen in the postoperative period by Dr. Castillo Hull, HOSPITAL COURSE: For details of admission history and physical, please see dictated summary. Briefl y, the patient is an 82-year-old male who presented to the hospital in September of 2017, with sepsis an d peritonitis. He was found to have perforated diverticulitis at the time of exploration and underwe nt primary resection with end-colostomy and Matteo procedure. He ultimately recovered without infe ctious complications and developed a mildly symptomatic peristomal hernia. After his surgery, he und erwent elective hemorrhoidectomy in preparation for his colostomy takedown as he had significant prol apsing hemorrhoids and this was performed by Dr. Jorge Chang. Patient underwent mechanical and antibiotic bowel preparation prior to being admitted for laparoscopi c colostomy takedown. He had preoperative cardiac clearance and was restarted on diltiazem, which he had for some reason, self discontinued in the weeks prior to surgery. At the time of surgery, he wa s found to have extensive residual diverticula in the distal sigmoid section. This was resected and he underwent primary coloproctostomy after mobilization of the splenic flexure and takedown of adhesi ons. Subsequently, the peristomal hernia was repaired primarily without mesh and an abdominal binder was placed. The patient had mild postoperative pain and within 24 hours was off narcotics and taking only Tylenol for pain. He was ambulatory, afebrile, weaned from oxygen on the second postoperative day and was a dvanced to a low-fiber diet, passing liquid stool, and having no significant distention or nausea. P mikey was instructed in activity, diet, and wound care, and will follow up in my office in the [facility] week for staple removal. DISCHARGE MEDICATIONS: Diltiazem 120 mg extended release p.o. daily, Protonix 40 mg p.o. daily, aspi rin 325 mg p.o. daily, Tylenol 325 to -650 mg p.o. q.4 hours p.r.n. pain. CONDITION AT TIME OF DISCHARGE: Improved. Final pathology report is pending. Copy requested to: Dr. Jorge Rosales /[id number]/MODL
[2018-02-02] MEDS: PANTOPRAZOLE SODIUM 40 MG VIAL IVP SCH (09:44)
--- NOTE | 2018-02-02 11:36 | ASDISCHSUM ---
Discharge Information Plan Status:Home with No Needs Medically Cleared to Leave:02/01/2018 Discharge Date:02/01/2018 CM D/C Disposition:Home, Routine, Self-Care ADT D/C Disposition: Projected Discharge Date:02/02/2018 12:00 AM Transportation at D/C:Family Discharge Delay Reason: Follow-Up Date:02/02/2018 12:00 AM Discharge Slot:2 - 12:01 pm - 18:00 pm Final Diagnosis:Diverticulitis, S/P lap colostomy takedown, partial colectomy, coloproctostomy Placement Information Patient Contact Information Contact Name:GILBERTO Relationship:Daughter Address: Work Phone: City: [facility] Phone: [facility]/InvoiceSharing Code: Email: Financial Information Financial Class:Medicare Primary Plan Desc:MEDICARE INPATIENT Primary Plan Number:[id number] Secondary Plan Desc:AYDIN JACOBSEN O OPEN ACC LOCAL Secondary Plan Number:[id number] Assessment Information [facility] CM Progress Note CM Note CM Note Notes: Pt admitted to hospital for a scheduled colostomy takedown. He developed a post op ileus that is resolving, pt lives alone and has been cleared for home by therapies. CM available for any changes. DC Plan: Independent Date Signed: 02/01/2018 04:40 PM Electronically Signed By:Laly Ambriz RN Intervention Information Intervention Type:*IM-Signed Date of Service:02/02/2018 11:24 AM Patient Type:Inpatient Staff Member:Veronica Reyes Hours: Discipline: Severity: Comment:IM delivered and signed by patient for receipt, placed in back of chart.
[2018-02-02 11:51] VITALS: BP 123/88
--- NOTE | 2018-02-02 17:18 | CPEKG ---
Test Reason : OPEN Blood Pressure : / mmHG Vent. Rate : 078 BPM Atrial Rate : 000 BPM P-R Int : 154 ms QRS Dur : 105 ms QT Int : 367 ms P-R-T Axes : 000 053 000 degrees QTc Int : 419 ms Atrial fibrillation Borderline T abnormalities, inferior leads LVH noted Confirmed by En Portillo ([id number]) on 02/02/2018 5:18:16 PM Referred By: Confirmed By:En Portillo
--- NOTE | 2018-02-03 14:20 | ASMTDCNOTE ---
Case Management Discharge Discharge Order Complete? Answers: Yes Patient to Obtain Answers: via Family Medications Transportation Arranged Answers: Family/Friends Discharge Comments Notes: CM met with patient prior to discharge, patient states his son will transport and will support with follow up recommendations. CM delivered IM, patient signed for receipt, IM placed in back of chart. CM available to support if any additional Case Management/Disharge needs arise. Date Signed: 02/02/2018 11:30 AM Electronically Signed By:Veronica Reyes
== END 2018-02-02 14:06 | disposition home or self-care (01) | DRG 346 ==
LOC: F3E 01-31 08:22
PROVIDERS: ADMIT Surgery; ATTEND Surgery
DX: Z43.3 Encounter for attention to colostomy (principal); K43.5 Parastomal hernia without obstruction or gangrene; K66.0 Peritoneal adhesions (postprocedural) (postinfection); I10 Essential (primary) hypertension; R09.02 Hypoxemia; I48.0 Paroxysmal atrial fibrillation; F41.9 Anxiety disorder, unspecified; I08.0 Rheumatic disorders of both mitral and aortic valves
CPT/HCPCS: 97161-GP; 97165-GO; G8978-GP-CH; G8979-GP-CH; G8980-GP-CH; G8987-GO-CJ; G8988-GO-CI; J0690; J1100; J1170; J1650; J2250; J2270; J2405; J2704; J2710; J3010

== ENCOUNTER → 2018-05-14 | Outpatient (CLI) | payer OTHER | LOC: BHFA 09:15 | PROVIDERS: ATTEND Internal Medicine Cardiovascular Disease | DX: I48.91 Unspecified atrial fibrillation (principal); R06.09 Other forms of dyspnea ==

== ENCOUNTER → 2018-05-23 | Outpatient (CLI) | payer OTHER ==
[~2018-05-23] MED LIST: IOPAMIDOL (ISOVUE 370) 100 ML BTL IV ONE
== END ==
LOC: FIMAGING 13:11
PROVIDERS: ATTEND Internal Medicine Cardiovascular Disease
DX: I50.9 Heart failure, unspecified (principal); Z53.9 Procedure and treatment not carried out, unspecified reason
CPT/HCPCS: Q9967

== ENCOUNTER → 2018-05-26 | Outpatient (CLI) | payer OTHER | LOC: FIMAGING 10:03 ==

== ENCOUNTER 2018-08-11 06:37 | Day surgery (SDC) | payer OTHER | END 2018-08-11 14:00 | disposition home or self-care (01) | LOC: FCATH 06:37 ==